=== PATIENT | female | born 1980 | race Caucasian/White ===

== ENCOUNTER 2024-07-23 11:12 | Outpatient (CLI) | payer BC, SELFPAY ==
--- NOTE | ~2024-07-23 | US_ITS ---
Left uterine ULTRASOUND (Doppler ultrasound interrogation techniques used as needed for this exam.) Ordering provider: Comfort Jaquez APRN History: . R59.1 - Generalized enlarged lymph nodes . Comparison: None. FINDINGS: Enlarged lymph nodes are noted measuring 1.2 cm, 0.6 cm, 0.6 cm and 2x 0.5 cm. Reviewed, dictated and finalized at location A.
== END 2024-07-23 11:13 | disposition home or self-care (01) ==
PROVIDERS: PCP Nurse Practitioner Family; Visit Provider Nurse Practitioner Family
DX: R59.1 Generalized enlarged lymph nodes (principal)
CPT/HCPCS: 76882

== ENCOUNTER 2025-01-03 14:02 | Outpatient (CLI) | payer BC, SELFPAY ==
--- NOTE | ~2025-01-03 | MM_ITS ---
EXAMINATION: MM screening trevor BI w taty HISTORY: Screening TECHNIQUE: Craniocaudal and mediolateral oblique 3-D tomosynthesis images were obtained and synthetic 2-D images were generated. CAD analysis was submitted and interpreted. COMPARISON: No prior mammogram is available for comparison at this institution. BREAST PARENCHYMAL COMPOSITION: There are scattered areas of fibroglandular density. FINDINGS: There is no evidence of suspicious mass, calcification, or architectural distortion to suggest malignancy. Asymmetry in the upper right breast, posterior depth, seen in the right MLO projection. Asymmetry in the medial right breast, posterior depth, seen in the right cc projection. Focal as ymmetry in the upper-outer quadrant of the left breast, middle to posterior depth. Asymmetry in the medial right breast, middle depth, seen in the right craniocaudal projection. IMPRESSION: 1. Asymmetry in the upper right breast, posterior depth, seen in the right MLO projection. Asymmetry in the medial right breast, posterior depth, seen in the right craniocaudal projection. Asymmetry in the medial right breast, middle depth, seen in the right craniocaudal projection. The study is incomplete. A diagnostic mammogram and a diagnostic ultrasound are recommended. 2. Focal asymmetry in the upper-outer quadrant of the left breast, middle to posterior depth. The study is incomplete. A diagnostic mammogram and a diagnostic ultrasound are recommended. BI-RADS 0: Incomplete-Need additional imaging evaluation. Reviewed, dictated and finalized at location Q. IMPRESSION: 1. Asymmetry in the upper right breast, posterior depth, seen in the right MLO projection. Asymmetry in the medial right breast, posterior depth, seen in the right craniocaudal projection. Asymmetry in the medial right breast, middle dep th, seen in the right craniocaudal projection. The study is incomplete. A diagn ostic mammogram and a diagnostic ultrasound are recommended. 2. Focal asymmetry in the upper-outer quadrant of the left breast, middle to po sterior depth. The study is incomplete. A diagnostic mammogram and a diagnostic ultrasound are recommended. BI-RADS 0: Incomplete-Need additional imaging evaluation.
== END 2025-01-03 14:03 | disposition home or self-care (01) ==
LOC: MICIMG 14:03
PROVIDERS: PCP Nurse Practitioner Family; Visit Provider Nurse Practitioner Family
DX: Z12.31 Encounter for screening mammogram for malignant neoplasm of breast (principal); R92.8 Other abnormal and inconclusive findings on diagnostic imaging of breast
CPT/HCPCS: 77063; 77067

== ENCOUNTER 2025-01-24 19:51 | Inpatient (IN) | payer BC, SELFPAY ==
--- NOTE | ~2025-01-24 | CT_ITS ---
EXAMINATION: CT abdomen pelvis w con DATE: 01/25/2025 00:11 INDICATION: Right upper quadrant abdominal pain. Abnormal liver function tests. TECHNIQUE: Computed tomography (CT) of the abdomen and pelvis was performed with 100 mL Omnipaque 350 intravenous contrast. Automated exposure control and iterative reconstruction technique were employed. The dose-length product was 601.45 mGy-cm. COMPARISON: None. FINDINGS: The visualized portions of lung bases demonstrate mild atelectasis. No pleural effusion. The heart size is normal. No pericardial effusion. There is mild intrahepatic biliary duct dilatation. The common duct is dilated to 9 mm. The gallbladder is distended. The spleen, pancreas, adrenal glands, and kidneys are normal. There is diverticulosis of the colon without evidence of diverticulitis. The appendix is normal. There are no dilated loops of bowel. There are no pathologically enlarged lymph nodes. There is physiologic fluid in the pelvis. There is mild thoracic and lumbar spondylosis. IMPRESSION: 1. Mild intrahepatic and extrahepatic biliary duct dilatation and gallbladder distention. Consider MRCP. Reviewed, dictated and finalized at location E. TE ATTORNEY IMPRESSION: 1. Mild intrahepatic and extrahepatic biliary duct dilatation and gallbladder d istention. Consider MRCP.
--- NOTE | ~2025-01-24 | MR_ITS ---
EXAMINATION: MR MRCP wo/w con/w 3D wo ind DATE: 01/25/2025 11:26 INDICATION: Assess gallbladder and biliary ducts TECHNIQUE: Magnetic resonance imaging (MRI) of the abdomen was performed without and with 17 mL Multihance intravenous contrast. Sequences included coronal T2- weighted SS-FSE, coronal T2-weighted FS SS-FSE, coronal T2-weighted FS FIESTA, axial T2-weighted FS FIESTA, axial T2-weighted FIESTA, sagittal T2-weighted SS- FSE, axial T1-weighted dual-echo FSPGR, axial T2-weighted SS-FSE, axial T1- weighted LAVA, axial T2-weighted STIR FSE. Thick-slab T2-weighted FRFSE-XL images were obtained for magnetic resonance cholangiopancreatography (MRCP). Rotating maximum intensity projection 3-D reconstructions of the volumetric data were created by the technologist. Postcontrast sequences included a time course of axial T1-weighted LAVA. COMPARISON: CT dated 01/25/2025 FINDINGS: ABDOMEN MRI: Heart size is normal. No pericardial or pleural effusion. There are multiple tiny low signal intensity gallstones the dependent aspect of the mildly gallbladder which measures up to 4.6 cm in maximal diameter. No abnormal gallbladder wall thickening or pericholecystic inflammatory stranding to suggest acute cholecystitis. Side from mild intrahepatic ductal or ductal dilation the liver is normal. Spleen, pancreas, bilateral adrenal glands and right kidney are normal. 1 cm T2 hyperintense nonenhancing cyst at the lower pole the left kidney. Visualized portions of bowels including the appendix are normal. No pathologically enlarged abdominal or upper pelvic lymphadenopathy. Bones are unremarkable with normal marrow signal throughout. ABDOMEN MRCP: Mild central intrahepatic biliary ductal dilation. The common hepatic duct is dilated to 9 mm in maximal diameter tapering to 6 mm at the proximal common bile duct with further tapering distally at the ampulla. A single currently nonobstructing 2 mm low signal intensity gallstone is seen in the dependent aspect of the mid common bile duct. IMPRESSION: 1. Cholelithiasis/choledocholithiasis with 2 mm currently nonobstructing gallstone in the midportion of the common bile duct. The mild intra and extra hepatic biliary ductal dilation is also mild dilation the common bile duct could be related to prior prior or intermittent obstruction. Reviewed, dictated and finalized at location A. GRADER IMPRESSION: 1. Cholelithiasis/choledocholithiasis with 2 mm currently nonobstructing gallst one in the midportion of the common bile duct. The mild intra and extra hepatic biliary ductal dilation is also mild dilation the common bile duct could be re lated to prior prior or intermittent obstruction.
--- NOTE | ~2025-01-24 | XR_ITS ---
XR ERCP Indication: ERCP procedure. TECHNIQUE: Fluoroscopy used during ERCP procedure performed by [Aman Hirsch MD] on 01/25/2025. 104 seconds of fluoroscopy with 5 fluoroscopic images captured. FINDINGS: Correlate with procedure note. IMPRESSION: Fluoroscopy used during ERCP procedure. Reviewed, dictated and finalized at location O. RETE RUBBER
--- NOTE | ~2025-01-24 | US_ITS ---
EXAMINATION: US abdomen limited DATE: 01/25/2025 09:58 INDICATION: Right upper quadrant ultrasound TECHNIQUE: Multiple grayscale and Doppler ultrasound images of the abdomen were obtained. COMPARISON: None FINDINGS: The pancreas is poorly visualized. The liver appears normal size, mildly increased in echotexture. The gallbladder is mildly distended in appearance with echogenic foci in the gallbladder suggestive of gallstones. Negative sonographic Martinez's reported. No gallbladder wall thickening. Common bile duct is 7.6 mm. No free fluid seen. The kidneys are not seen. IMPRESSION: 1. Cholelithiasis with mildly distended gallbladder, and biliary ductal dilatation. Cholecystitis/choledocholithiasis is not excluded. 2. Exam somewhat limited as above. Reviewed, dictated and finalized at location A. ATOR WORKER IMPRESSION: 1. Cholelithiasis with mildly distended gallbladder, and biliary ductal dilatat ion. Cholecystitis/choledocholithiasis is not excluded. 2. Exam somewhat limited as above.
[2025-01-24 19:52] VITALS: BP 130/88; PULSE 89; RESP 18; O2SAT 100
--- NOTE | 2025-01-24 22:29 | PC.NURSE ---
Pt aware she needs to provide urine sample. Pt states she is unable to go at this time.
[2025-01-24 22:31] LABS: Hematocrit 36.9 % (37.0-47.0); Hemoglobin 12.1 g/dL (12.0-15.0); Immature Granulocyte Percent A 0.5 % (0-0.5); Lymphocytes Absolute Auto 0.89 K/mm3 (0.9-3.2); Mean Corpuscular HGB Conc 32.8 g/dl (32-36); Mean Corpuscular Hemoglobin 28.0 pg (26-34); Mean Corpuscular Volume 85.4 fl (80-100); Nucleated Red Blood Cells Absolute Auto 0.000 K/mm3 (0.0-0.012); Nucleated Red Blood Cells Perc 0.0 % (0.0-0.2); Platelet Count Result 222 k/mm3 (150-375); Red Blood Count 4.32 M/mm3 (4.2-5.4); White Blood Count 6.0 K/mm3 (4.5-10.0)
[2025-01-24 22:43] LABS: Alanine Aminotransferase 503 U/L (6-35); Albumin Level 4.5 g/dL (3.5-5.1); Alkaline Phosphatase 104 U/L (38-126); Anion Gap 9 mmol/L (4-12); Aspartate Amino Transferase 476 U/L (14-36); Bilirubin,Total 7.0 mg/dL (0.2-1.3); Blood Urea Nitrogen 10 mg/dL (7-17); Calcium 8.8 mg/dL (8.4-10.2); Carbon Dioxide 24 mmol/L (22-30); Chloride 106 mmol/L (98-107); Estimated CRCL calculation 89 ml/min; Estimated Glomerular Filt Rate > 60; Glucose 108 mg/dL (65-110); Lipase 58 U/L (23-300); Potassium 3.4 mmol/L (3.4-5.0); Sodium 139 mmol/L (137-145); Total Protein 7.4 g/dL (6.3-8.2)
--- NOTE | 2025-01-24 23:41 | ED_ITS ---
HPI - General Adult General Chief complaint: Abdominal Pain Stated complaint: gallbladder attack Time Seen by Provider: 01/24/25 22:57 History of Present Illness HPI narrative: This is a 44-year-old female presenting for right upper quadrant pain. Patient has a history of biliary colic that she experienced maybe once or twice a year. Over the last 3 nights she has been having right upper quadrant pain radiating to her back. It is associated with eating food. she denies any fevers chills nausea vomiting or diarrhea. No chest pain or difficulty breathing. No urinary symptoms. Related Data Home Medications ?Medication ?Instructions ?Recorded ?Confirmed ?Last Taken ?Type No Home Medications 06/20/24 06/20/24 U nknown History Allergies Allergy/AdvReac Type Severity Reaction Status Date / Time No Known Allergies Allergy Mild Verified 01/24/25 19:58 [facility] Past Medical History Medical History (Updated 01/25/25 @ 01:33 by Jules Lyle MD) Encounter to establish care Family History Family History Father Parkinson disease Sibling Hypertension Social History Social History Second hand tobacco smoke exposure: Yes Alcohol intake: current Drinks per week: 3 Substance use: current Substance use type: does not use Do You Feel Safe in your Home?: Yes Lack of Transportation: No Lack of Food: Never True Current Housing: I Have Housing Concerned About Future Housing: No Difficulty Paying Gas/Electric Bills: No Difficulty Paying for Meds: No Currently Unemployed: No Education: Associate Degree Difficulty w/ Childcare or Family Care: No Living arrangements: with family Occupation/Education: occupation Gender identity (if verbalized by the patient): Female Agree to blood products: Yes Exam 2 Narrative: APPEARANCE: No apparent distress. Jaundiced Head: atraumatic. EYES: EOMI, NOSE: Atraumatic NECK: Trachea midline RESPIRATORY: No increased rate of breathing clear to auscultation CARDIOVASCULAR: RRR, no peripheral edema ABDOMINAL: Non-distended, soft nontender no guarding rebound MUSCULOSKELETAl: No obvious deformities NEURO: Alert. Moving 4/4 extremities SKIN:: Warm, dry. Normal color PSYCHIATRIC: Normal affect Course Vital Signs Vital signs: Vital Signs Pulse Rate 89 01/24/25 19:52 Respiratory Rate 18 01/24/25 19:52 Blood Pressure 130/88 01/24/25 19:52 Pulse Oximetry 100 01/24/25 19:52 Oxygen Delivery Room Air 01/24/25 19:52 Pulse Rate 60 01/25/25 01:23 Respiratory Rate 13 01/25/25 01:23 Blood Pressure 132/83 01/25/25 01:23 Pulse Oximetry 100 01/25/25 01:23 Oxygen Delivery Room Air 01/24/25 19:52 Medical Decision Making [facility] Narrative Medical decision making narrative: -Course: 44-year-old female presenting with right upper quadrant pain. On exam she does not have abdominal tenderness but she is jaundiced. Laboratory studies showed bilirubin [address] abdomen pelvis showed dilated gallbladder intra and extrahepatic biliary dilation. No definitive stones identified. Suspicious for cholecystitis versus choledocholithiasis. Patient's presentation more consistent with choledocholithiasis although further evaluation is needed. Case was discussed with Dr. Thapa. He has requested a right upper quadrant ultrasound and MRCP. He requested no antibiotics. Patient given fluids pain control. Patient will be admitted the hospital. -DDX includes but is not limited to: acute cholecystitis, choledocholithiasis, cholangitis Vital Signs Vital Signs: Vital Signs Pulse Rate 89 01/24/25 19:52 Respiratory Rate 18 01/24/25 19:52 Blood Pressure 130/88 01/24/25 19:52 Pulse Oximetry 100 01/24/25 19:52 Oxygen Delivery Room Air 01/24/25 19:52 Pulse Rate 60 01/25/25 01:23 Respiratory Rate 13 01/25/25 01:23 Blood Pressure 132/83 01/25/25 01:23 Pulse Oximetry 100 01/25/25 01:23 Oxygen Delivery Room Air 01/24/25 19:52 Lab Data 01/24/25 22:24 01/24/25 22:24 Labs: Lab Results 01/24/25 01/24/25 01/25/25 Range/Units 22:24 23:59 00:00 WBC 6.0 (4.5-10.0) K/mm3 RBC 4.32 (4.2-5.4) M/mm3 Hgb 12.1 (12.0-15.0) g/dL Hct 36.9 L (37.0-47.0) % MCV 85.4 (80-100) fl MCH 28.0 (26-34) pg MCHC 32.8 (32-36) g/dl RDW 13.6 (11.5-14.5) % Plt Count 222 (150-375) k/mm3 MPV 10.6 H (7.4-10.4) fl Immature Gran % (Auto) 0.5 (0-0.5) % Neut % (Auto) 74.4 H (45.5-73.1) % Lymph % (Auto) 14.8 L (18.3-44.2) % Wheeler % (Auto) 7.5 (2.6-8.5) % Eos % (Auto) 2.5 (0-4.4) % Baso % (Auto) 0.3 (0.2-1.2) % Lymph # (Auto) 0.89 L (0.9-3.2) K/mm3 Wheeler # (Auto) 0.5 (0.1-0.6) K/mm3 Eos # (Auto) 0.2 (0-0.3) K/mm3 Baso # (Auto) 0.0 (0.0-0.1) K/mm3 Abs Immat Gran (auto) 0.03 (0.00-0.031) K/mm3 Absolute Neuts (auto) 4.5 (1.3-6.7) K/mm3 Absolute Nucleated RBC 0.000 (0.0-0.012) K/mm3 Nucleated RBC % 0.0 (0.0-0.2) % Sodium 139 (137-145) mmol/L Potassium 3.4 (3.4-5.0) mmol/L Chloride 106 (98-107) mmol/L Carbon Dioxide 24 (22-30) mmol/L Anion Gap 9 (4-12) mmol/L BUN 10 (7-17) mg/dL Creatinine 0.74 (0.7-1.0) mg/dL Estim Creat Clear Calc 89 ml/min Estimated GFR > 60 (59 - ) Glucose 108 (65-110) mg/dL Calcium 8.8 (8.4-10.2) mg/dL Total Bilirubin 7.0 H (0.2-1.3) mg/dL AST 476 H (14-36) U/L ALT 503 H (6-35) U/L Alkaline Phosphatase 104 (38-126) U/L Total Protein 7.4 (6.3-8.2) g/dL Albumin 4.5 (3.5-5.1) g/dL Lipase 58 (23-300) U/L Urine Color Dark yellow (Yellow) Urine Appearance Clear (Clear) Urine pH 5.5 (5.0-9.0) Ur Specific [place] 1.019 (1.001-1.035) Urine Protein Negative (Negative) mg/dL Urine Glucose (UA) Negative (Negative) mg/dL Urine Ketones Trace H (Negative) mg/dL Ur Blood (Man) Negative (Negative) Urine Nitrate Positive H (Negative) Urine Bilirubin 3+ H (Negative) Urine Urobilinogen 2.0 H (<2.0) mg/dL Add Ur Microanalysis Reviewed Leukocyte Esterase Rfl 1+ H (Negative) MARISELA/UL Urine RBC 0-2 (0-2) /hpf Urine WBC 0-5 (0-3) /hpf Ur Squamous Epith Cells Occasional (Few) /hpf Urine Bacteria 1+ H /hpf Urine Casts 0-2 POC Urine HCG, Qual Negative (Negative) Discharge Plan Discharge Clinical Impression: Elevated liver enzymes Patient Disposition: Still a Patient Condition: Stable Instructions: Antibiotic Form Patient Language: Azeri Prescriptions: No Action No Home Medications Follow-up/Referrals: Comfort Jaquez APRN [Primary Care Provider, Internal Medicine]
[2025-01-25] VITALS (15 sets, daily range): BP systolic 95–136; BP diastolic 51–88; PULSE 60–103; RESP 13–23; TEMP 36.1–37.1; O2SAT 97–100
[2025-01-25 00:17] LABS: Add Urine Microscopic? YES; Appearance Urine Clear (Clear); Glucose Urine UA Negative (Negative); Leukocyte Esterase Ur 1+ LEU/UL (Negative); Need Manual Microscopic Reviewed; Nitrate Urine Positive (Negative); Non Pathogenic Casts 0-2; Specific Grav Ur 1.019 (1.001-1.035)
[2025-01-25 00:30] LABS: BEDSIDEPREGUCG Negative (Negative)
[2025-01-25] MEDS: HYDROmorphone HCL INJ (*CRX) 1 MG/ML SYR 0.5 MG IV PUSH (01:58)
[2025-01-25] MEDS: LACTATED RINGERS 1,000 ML 150 ML IV CONT ×2 (01:58→16:35)
--- NOTE | 2025-01-25 02:50 | ADMGEN ---
This patient, Vonda Rosario, was admitted to Medical Room 348-01. Patient/family oriented to hospital policies and general routines including ID bracelet, bed and alarms, visiting hours, pain management, procedures, bathroom and other care routines, personal items, smoking policy, room service/diet, and visiting hours. Information on how to activate the Rapid Response Team has been discussed. Patient/Family are encouraged to report perceived risks to care and to ask questions if they do not understand what they are told or what they should do.
[2025-01-25] MEDS: IBUPROFEN 400 MG TABLET PO (05:53)
[2025-01-25 05:55] LABS: Hematocrit 36.6 % (37.0-47.0); Hemoglobin 11.7 g/dL (12.0-15.0); Immature Granulocyte Percent A 0.5 % (0-0.5); Lymphocytes Absolute Auto 0.79 K/mm3 (0.9-3.2); Mean Corpuscular HGB Conc 32.0 g/dl (32-36); Mean Corpuscular Hemoglobin 27.8 pg (26-34); Mean Corpuscular Volume 86.9 fl (80-100); Nucleated Red Blood Cells Absolute Auto 0.000 K/mm3 (0.0-0.012); Nucleated Red Blood Cells Perc 0.0 % (0.0-0.2); Platelet Count Result 200 k/mm3 (150-375); Red Blood Count 4.21 M/mm3 (4.2-5.4); White Blood Count 6.3 K/mm3 (4.5-10.0)
[2025-01-25 06:21] LABS: Alanine Aminotransferase 492 U/L (6-35); Albumin Level 4.2 g/dL (3.5-5.1); Alkaline Phosphatase 106 U/L (38-126); Anion Gap 7 mmol/L (4-12); Aspartate Amino Transferase 475 U/L (14-36); Bilirubin,Total 6.1 mg/dL (0.2-1.3); Blood Urea Nitrogen 8 mg/dL (7-17); Calcium 8.6 mg/dL (8.4-10.2); Carbon Dioxide 23 mmol/L (22-30); Chloride 107 mmol/L (98-107); Estimated CRCL calculation 94 ml/min; Estimated Glomerular Filt Rate > 60; Glucose 101 mg/dL (65-110); Magnesium 2.2 mg/dL (1.6-2.3); Potassium 3.8 mmol/L (3.4-5.0); Sodium 137 mmol/L (137-145); Total Protein 6.8 g/dL (6.3-8.2)
[2025-01-25 06:27] LABS: INR 1.0; Prothrombin Time 13.8 Seconds (11.1-14.7)
--- NOTE | 2025-01-25 08:11 | PM.IMHP ---
H&P: HPI History of Present Illness Date/Time: 01/25/25 08:11 Chief Complaint: Abdominal Pain Narrative: Vonda Rosario is a 44 year old female with a past medical history of Gallbladder disease who presents to the hospital with RUQ abdominal pain for the past 3 days. She states this pain is intermittent and radiates to her back. States that after eating food it tends to get worse and a heating pad tends to alleviate the symptoms. Denies any chest pain, shortness of breath, n/v/d, fevers or chills. Denies any urinary/bowel changes. She states that she has a long history of ?gallbladder issues and will develop symptoms similar to which she is presenting with today but that it usually subsides. She also states that she noticed her skin turning yellow, which prompted her to come to the emergency department. At time of exam, patient denied any abdominal pain or nausea. No family history of colorectal cancer or IBD. Denies any recent travel, illnesses or illicit drug use. ED workup: 130/88, 100% on room air, 18 respiratory rate, 89 pulse rate WBC 6.0, H&H normal, PLT 222, Na 139, K 3.4, BUN 10, creatinine 0.74 total bilirubin 7, AST 476, ALT 503, alkaline phosphatase 104, lipase 58 UA: 3+ bilirubin, 1+ bacteria, 1+ leukocyte esterase otherwise unremarkable Abdomen/pelvis CT: Mild intrahepatic and extrahepatic biliary duct dilation and gallbladder distension, consider MRCP Abdomen ultrasound: Cholelithiasis with mildly distended gallbladder, and biliary duct dilation, cholecystitis/choledocholithiasis not excluded Review of Systems Review of Systems: All systems reviewed & are unremarkable except as noted in HPI and below [facility], [facility] Past Medical History Medical History (Updated 01/25/25 @ 12:49 by Kiya Flowers APRN) Encounter to establish care Family History Family History (Updated 01/25/25 @ 02:57 by Desiree Petty RN) Father Parkinson disease Sibling Hypertension Mother Alzheimer dementia Social History Social History Smoking status: Never smoker Second hand tobacco smoke exposure: Yes Alcohol intake: current Drinks per week: 1 Substance use: current Substance use type: marijuana Other substance usage details: 1xper mo Do You Feel Safe in your Home?: Yes Lack of Transportation: No Lack of Food: Never True Current Housing: I Have Housing Concerned About Future Housing: No Difficulty Paying Gas/Electric Bills: No Difficulty Paying for Meds: No Currently Unemployed: No Education: Associate Degree Difficulty w/ Childcare or Family Care: No Living arrangements: with family Occupation/Education: occupation Gender identity (if verbalized by the patient): Female Spiritual care concerns: No Agree to blood products: Yes Meds Home Medications and Allergies Home Medications ?Medication ?Instructions ?Recorded ?Confirmed ?Type No Home Medications 06/20/24 01/25/25 History Allergies Allergy/AdvReac Type Severity Reaction Status Date / Time No Known Allergies Allergy Mild Verified 01/25/25 02:54 Vital Signs Vital Signs - 24 hr 01/24/25 19:52 01/25/25 00:01 01/25/25 01:23 Temperature Pulse Rate 89 67 60 Respiratory Rate 18 18 13 Blood Pressure 130/88 112/74 132/83 Pulse Oximetry 100 100 100 Oxygen Delivery Room Air 01/25/25 01:45 01/25/25 03:03 01/25/25 03:59 Temperature 96.9 F L Pulse Rate 70 69 Respiratory Rate 19 18 Blood Pressure 131/88 102/56 L Pulse Oximetry 100 98 Oxygen Delivery Room Air 01/25/25 06:00 Temperature 97.5 F L Pulse Rate 81 Respiratory Rate 16 Blood Pressure 95/51 L Pulse Oximetry 98 Oxygen Delivery Exam Narrative: Gen - well appearing female in no acute respiratory distress who is nontoxic-appearing lying semi recumbent in bed HEENT - normocephalic. Atraumatic. Pupils equal round and reactive. Extraocular motions intact. Sclera clear and anicteric. Nares patent. Moist mucous membranes. No facial asymmetry. Neck - neck was supple. No dominant adenopathy, thyromegaly or masses. 2+ carotid upstrokes without bruits. Chest - lungs are clear to auscultation bilaterally. No wheezes or crackles. CV - heart was regular rate and rhythm. S1-S2. No murmurs gallops or rubs. Abd - abdomen was soft. Nontender. Nondistended. Positive bowel sounds. No organomegaly or masses. Ext - no clubbing, cyanosis or edema. 2+ DP pulses bilaterally. Neuro - patient is alert and oriented x4. Strength is 5/5 in both upper and lower extremities. Cranial nerves 2-12 are intact. Speech is clear. Psych - normal mood and affect. Patient is pleasant and cooperative. Skin -jaundiced, warm and dry. No rashes noted. H&P: Results Labs Labs: Short CBC 01/24/25 01/25/25 Range/Units 22:24 05:34 WBC 6.0 6.3 (4.5-10.0) K/mm3 Hgb 12.1 11.7 L (12.0-15.0) g/dL Hct 36.9 L 36.6 L (37.0-47.0) % Plt Count 222 200 (150-375) k/mm3 BMP 01/24/25 01/25/25 22:24 05:34 Sodium 139 137 Potassium 3.4 3.8 Chloride 106 107 Carbon Dioxide 24 23 BUN 10 8 Creatinine 0.74 0.69 L Glucose 108 101 Calcium 8.8 8.6 Liver Function 01/24/25 01/25/25 Range/Units 22:24 05:34 Total Bilirubin 7.0 H 6.1 H (0.2-1.3) mg/dL AST 476 H 475 H (14-36) U/L ALT 503 H 492 H (6-35) U/L Alkaline Phosphatase 104 106 (38-126) U/L Albumin 4.5 4.2 (3.5-5.1) g/dL Urine 01/24/25 Range/Units 23:59 Urine Color Dark yellow (Yellow) Urine Appearance Clear (Clear) Urine pH 5.5 (5.0-9.0) Ur Specific [place] 1.019 (1.001-1.035) Urine Protein Negative (Negative) mg/dL Urine Glucose (UA) Negative (Negative) mg/dL Assessment and Plan Assessment and plan (1) Abnormal finding of biliary tract: Code(s): R19.8 - Other specified symptoms and signs involving the digestive system and abdomen Status: Acute Assessment and Plan: Abdomen/pelvis CT: Mild intrahepatic and extrahepatic biliary duct dilation and gallbladder distension, consider MRCP Abdomen ultrasound: Cholelithiasis with mildly distended gallbladder, and biliary duct dilation, cholecystitis/choledocholithiasis not excluded AST/ALT: 475/492, normal alk phos, total bili 6.1 P.r.n. pain control Gentle IV fluid resuscitation Diet: NPO MRCP: Cholelithiasis/choledocholithiasis with 2 mm currently nonobstructing gallstone in the midportion of the common bile duct. The mild intra and extra hepatic biliary ductal dilation is also mild dilation the common bile duct could be related to prior prior or intermittent obstruction. Monitor vital signs, I and O's, check stool output Monitor serum electrolytes and CBC GI consulted -appreciate further recommendations Trend LFTs over the weekend - if no improvement then ERCP Tuesday Recommend outpt surgery referral for Cholecystectomy - pt is asymptomatic and gallbladder does not appear to be acutely infected, CBD non-obstructed (2) Choledocholithiasis: Code(s): K80.50 - Calculus of bile duct without cholangitis or cholecystitis without obstruction Status: Acute Assessment and Plan: See problem 1 (3) Elevated liver enzymes: Code(s): R74.8 - Abnormal levels of other serum enzymes Status: Acute Assessment and Plan: See problem 1 Quality VTE Prophylaxis VTE prophylaxis: mechanical ordered
--- NOTE | 2025-01-25 09:33 | WPDGICN ---
Assessment and Plan Assessment and plan (1) Elevated liver enzymes: Code(s): R74.8 - Abnormal levels of other serum enzymes Status: Acute (2) Abnormal finding of biliary tract: Code(s): R19.8 - Other specified symptoms and signs involving the digestive system and abdomen Status: Acute (3) Choledocholithiasis: Code(s): K80.50 - Calculus of bile duct without cholangitis or cholecystitis without obstruction Status: Acute Plan 1. Elevated LFT's/abnormal imaging biliary/gallbladder distention/choledocholithiasis: LFT's today show total bilirubin 6.1, AST 475, ALT 492, alkaline phosphatase 106, albumin 4.2, lipase 58, albumin 4.[address] revealed mild intrahepatic and extrahepatic biliary duct dilatation and gallbladder distention (CBD measuring 9 mm). Abdominal ultrasound showed cholelithiasis with mildly distended gallbladder, and biliary ductal dilatation. Cholecystitis/choledocholithiasis is not exclude with CBD measuring 7.6 mm. MRCP today: Cholelithiasis/choledocholithiasis with 2 mm currently nonobstructing gallstone in the midportion of the common bile duct. The mild intra and extra hepatic biliary ductal dilation is also mild dilation the common bile duct could be related to prior prior or intermittent obstruction. liver workup ordered to rule out other possible causes of abnormal elevated bilirubin and liver transaminase but normal Alk Phos Trend LFT's over the weekend and if no improvement will plan for ERCP on Tuesday patient will need to be referred to surgery outpatient for cholecystectomy 2. Colon cancer screening: Patient is 44 years old and has never had a colonoscopy. Familt Hx negative for CRC or IBD. Patient to follow up outpatient in the office if she would like to proceed with screening colonoscopy. Thank you very much for allowing me to share in the care of this very nice patient. This report may have been done utilizing a voice recognition system. Attempts have been made to correct errors. However, there may be uncorrected grammatical, spelling, and recognition errors present. GI Consult Note Consult date/time: 01/25/25 09:33 Reason for consult: elevated LFT's and abnormal imaging biliary HPI: Vonda Rosario is a 44 year old female with no significant past medical surgical history. She presented to the emergency room today with complaints of right upper quadrant pain x3 days. GI has been consulted abnormal LFTs and abnormal imaging biliary tract. Patient states that prior to admission she was having right upper quadrant pain that would typically only occur at night but would resolve before she woke in the morning she states that she had never had pain throughout the day. She denies nausea, vomiting, bloating, odynophagia, dysphagia, reflux, regurgitation, early satiety, appetite or weight loss. Prior to admission she was having regular daily bowel movements that were formed and non Urgent. Denies diarrhea, constipation, hematochezia, or melena. Patient uses ibuprofen 400 mg 5 times a week. Family history negative for CRC or IBD. She has a rare social drinker denies tobacco use and occasionally uses marijuana. ENDOSCOPY HISTORY: EGD: Patient has never had an EGD COLONOSCOPY: Patient has never had a colonoscopy LABS AND STOOL STUDIES: Labs 01/25/2025: Sodium 137, potassium 3.8, BUN 8, creatinine 0.69, GFR >60, calcium 8.6 WBC 6.3, Hgb 12, Hct 37, MCV 87, platelets 200, INR 1.0 Total bilirubin 6.1, AST 475, ALT 492, Alkaline Phos 106, albumin 4.2, lipase 58 IMAGING: CT abd/pelvis w/contrast 01/25/2025: FINDINGS: The visualized portions of lung bases demonstrate mild atelectasis. No pleural effusion. The heart size is normal. No pericardial effusion. There is mild intrahepatic biliary duct dilatation. The common duct is dilated to 9 mm. The gallbladder is distended. The spleen, pancreas, adrenal glands, and kidneys are normal. There is diverticulosis of the colon without evidence of diverticulitis. The appendix is normal. There are no dilated loops of bowel. There are no pathologically enlarged lymph nodes. There is physiologic fluid in the pelvis. There is mild thoracic and lumbar spondylosis. IMPRESSION: 1. Mild intrahepatic and extrahepatic biliary duct dilatation and gallbladder distention. Consider MRCP. Review of Systems Constitutional: Constitutional: Reports as per HPI ENT: Reports as per HPI Cardiovascular: Cardiovascular: Reports as per HPI, Denies chest pain and Denies dyspnea Respiratory: Respiratory: Denies cough and Denies dyspnea Gastrointestinal: Gastrointestinal: Reports as per HPI Musculoskeletal: Musculoskeletal: Reports as per HPI Integumentary/Breasts: Skin/Breast: Reports as per HPI Psychiatric: Psychiatric: Reports as per HPI Endocrine: Endocrine: Reports no additional endocrine complaints Hematologic/Lymphatic: Hematologic/Lymphatic: Reports no additional hematologic/lymphatic complaints [facility] Past Medical History Medical History (Updated 01/25/25 @ 12:49 by Kiya Flowers APRN) Encounter to establish care Family History Family History (Updated 01/25/25 @ 02:57 by Desiree Petty RN) Father Parkinson disease Sibling Hypertension Mother Alzheimer dementia Social History Social History Smoking status: Never smoker Second hand tobacco smoke exposure: Yes Alcohol intake: current Drinks per week: 1 Substance use: current Substance use type: marijuana Other substance usage details: 1xper mo Do You Feel Safe in your Home?: Yes Lack of Transportation: No Lack of Food: Never True Current Housing: I Have Housing Concerned About Future Housing: No Difficulty Paying Gas/Electric Bills: No Difficulty Paying for Meds: No Currently Unemployed: No Education: Associate Degree Difficulty w/ Childcare or Family Care: No Living arrangements: with family Occupation/Education: occupation Gender identity (if verbalized by the patient): Female Spiritual care concerns: No Agree to blood products: Yes Meds Home Medications and Allergies Home Medications ?Medication ?Instructions ?Recorded ?Confirmed ?Type No Home Medications 06/20/24 01/25/25 History Allergies Allergy/AdvReac Type Severity Reaction Status Date / Time No Known Allergies Allergy Mild Verified 01/25/25 02:54 Vital Signs Vital Signs - 24 hr 01/24/25 19:52 01/25/25 00:01 01/25/25 01:23 Temperature Pulse Rate 89 67 60 Respiratory Rate 18 18 13 Blood Pressure 130/88 112/74 132/83 Pulse Oximetry 100 100 100 Oxygen Delivery Room Air 01/25/25 01:45 01/25/25 03:03 01/25/25 03:59 Temperature 96.9 F L Pulse Rate 70 69 Respiratory Rate 19 18 Blood Pressure 131/88 102/56 L Pulse Oximetry 100 98 Oxygen Delivery Room Air 01/25/25 06:00 01/25/25 08:00 Temperature 97.5 F L 98.8 F Pulse Rate 81 72 Respiratory Rate 16 16 Blood Pressure 95/51 L 113/69 Pulse Oximetry 98 99 Oxygen Delivery Exam Const: General: cooperative, healthy appearing, comfortable, no acute distress and well developed Orientation/consciousness: oriented to person, oriented to place, oriented to time and patient oriented x3 HENMT: Head: normal to inspection, normocephalic and atraumatic Mouth: Yes Normal oral and palatal mucosa present and Yes moist mucous membranes Eyes: General: appearance normal, both eyes and all related structures Conjunctivae: conjunctivae normal Sclera: sclerae normal Pupils: Equal, round and reactive pupils present Neck: Neck: normal visual inspection Chest: Chest palpation & inspection: normal inspection of the chest Resp: Effort & Inspection: normal respiratory effort and able to speak in complete sentences Auscultation: clear to auscultation bilaterally Cardio: Jugular venous distension: no JVD Rate: regular rate Rhythm: regular rhythm Heart sounds: S1 normal heart sound present and S2 normal heart sound present GI: Inspection: normal to inspection GI Palp: Yes Soft to palpation and Yes No hepatosplenomegaly present Auscultation: normal bowel sounds Rectal Exam: deferred Skin: General skin exam: normal color and no rashes or lesions noted Neuro: General: oriented to person, oriented to place, oriented to time and patient oriented x3 Cranial nerves: Yes Equal, round and reactive pupils present Speech: normal speech Extrem: General: normal to inspection and no clubbing, cyanosis or edema Psych: Appearance: grossly normal and well kempt Affect: normal affect Results Labs 01/25/25 05:34 01/25/25 05:34 Labs: Short CBC 01/24/25 01/25/25 Range/Units 22:24 05:34 WBC 6.0 6.3 (4.5-10.0) K/mm3 Hgb 12.1 11.7 L (12.0-15.0) g/dL Hct 36.9 L 36.6 L (37.0-47.0) % Plt Count 222 200 (150-375) k/mm3 BMP 01/24/25 01/25/25 22:24 05:34 Sodium 139 137 Potassium 3.4 3.8 Chloride 106 107 Carbon Dioxide 24 23 BUN 10 8 Creatinine 0.74 0.69 L Glucose 108 101 Calcium 8.8 8.6 Liver Function 01/24/25 01/25/25 Range/Units 22:24 05:34 Total Bilirubin 7.0 H 6.1 H (0.2-1.3) mg/dL AST 476 H 475 H (14-36) U/L ALT 503 H 492 H (6-35) U/L Alkaline Phosphatase 104 106 (38-126) U/L Albumin 4.5 4.2 (3.5-5.1) g/dL Urine 01/24/25 Range/Units 23:59 Urine Color Dark yellow (Yellow) Urine Appearance Clear (Clear) Urine pH 5.5 (5.0-9.0) Ur Specific [place] 1.019 (1.001-1.035) Urine Protein Negative (Negative) mg/dL Urine Glucose (UA) Negative (Negative) mg/dL
[2025-01-25 10:28] LABS: Iron 87 ug/dL (37-170)
[2025-01-25 10:37] LABS: Percent Iron Saturation 34 % (20-50)
[2025-01-25 11:01] LABS: Hepatitis B Surface Antigen Negative (Negative)
[2025-01-25 11:03] LABS: Ferritin 295.00 ng/mL (6.24-137)
[2025-01-25 11:07] LABS: HAV RESULT Negative (Negative); Hepatitis B Core IgM Result Negative (Negative)
[2025-01-25] MEDS: IBUPROFEN 600 MG TABLET PO ×2 (11:59→17:52)
--- NOTE | 2025-01-25 15:44 | P.PNAN_ITS ---
Anes - Initial Pre Proc Eval Procedure: Operation Date: 01/25/25 15:30 Proposed Procedures p Endoscopic Retro Cholangiopancreatogram - Aman Hirsch MD Date/Time: 01/25/25 15:44 Surgeon: Caio Perez MD Pre Op Diagnosis: Elevated liver enzymes Patient Data Age: 44 Gender: F Height: 1.65 m Weight: 83.2 kg Last Vital Signs Temp 36.8 C 01/25/25 15:17 Pulse 66 01/25/25 15:17 Resp 19 01/25/25 15:17 BP 123/66 01/25/25 15:17 Pulse Ox 100 01/25/25 15:17 O2 Del Method Room Air 01/25/25 15:17 Allergies Allergy/AdvReac Type Severity Reaction Status Date / Time No Known Allergies Allergy Mild Verified 01/25/25 15:17 Home Medications ?Medication ?Instructions ?Recorded ?Confirmed ?Type No Home Medications 06/20/24 01/25/25 H istory Laboratory Tests 01/24/25 01/24/25 01/25/25 22:24 23:59 00:00 WBC 6.0 K/mm3 (4.5-10.0) RBC 4.32 M/mm3 (4.2-5.4) Hgb 12.1 g/dL (12.0-15.0) Hct 36.9 L % (37.0-47.0) MCV 85.4 fl (80-100) MCH 28.0 pg (26-34) MCHC 32.8 g/dl (32-36) RDW 13.6 % (11.5-14.5) Plt Count 222 k/mm3 (150-375) MPV 10.6 H fl (7.4-10.4) Immature Gran % (Auto) 0.5 % (0-0.5) Neut % (Auto) 74.4 H % (45.5-73.1) Lymph % (Auto) 14.8 L % (18.3-44.2) [place] % (Auto) 7.5 % (2.6-8.5) Eos % (Auto) 2.5 % (0-4.4) Baso % (Auto) 0.3 % (0.2-1.2) Lymph # (Auto) 0.89 L K/mm3 (0.9-3.2) [place] # (Auto) 0.5 K/mm3 (0.1-0.6) Eos # (Auto) 0.2 K/mm3 (0-0.3) Baso # (Auto) 0.0 K/mm3 (0.0-0.1) Abs Immat Gran (auto) 0.03 K/mm3 (0.00-0.031) Absolute Neuts (auto) 4.5 K/mm3 (1.3-6.7) Absolute Nucleated RBC 0.000 K/mm3 (0.0-0.012) Nucleated RBC % 0.0 % (0.0-0.2) PT INR Sodium 139 mmol/L (137-145) Potassium 3.4 mmol/L (3.4-5.0) Chloride 106 mmol/L (98-107) Carbon Dioxide 24 mmol/L (22-30) Anion Gap 9 mmol/L (4-12) BUN 10 mg/dL (7-17) Creatinine 0.74 mg/dL (0.7-1.0) Estim Creat Clear Calc 89 ml/min Estimated GFR > 60 (59 - ) Glucose 108 mg/dL (65-110) Calcium 8.8 mg/dL (8.4-10.2) Magnesium Iron TIBC % Saturation Ferritin Total Bilirubin 7.0 H mg/dL (0.2-1.3) Indirect Bilirubin GGT AST 476 H U/L (14-36) ALT 503 H U/L (6-35) Alkaline Phosphatase 104 U/L (38-126) Total Protein 7.4 g/dL (6.3-8.2) Albumin 4.5 g/dL (3.5-5.1) Ceruloplasmin Lipase 58 U/L (23-300) Urine Color Dark yellow (Yellow) Urine Appearance Clear (Clear) Urine pH 5.5 (5.0-9.0) Ur Specific [place] 1.019 (1.001-1.035) Urine Protein Negative mg/dL (Negative) Urine Glucose (UA) Negative mg/dL (Negative) Urine Ketones Trace H mg/dL (Negative) Ur Blood (Man) Negative (Negative) Urine Nitrate Positive H (Negative) Urine Bilirubin 3+ H (Negative) Urine Urobilinogen 2.0 H mg/dL (<2.0) Add Ur Microanalysis Reviewed Leukocyte Esterase Rfl 1+ H MARISELA/UL (Negative) Urine RBC 0-2 /hpf (0-2) Urine WBC 0-5 /hpf (0-3) Ur Squamous Epith Cells Occasional /hpf (Few) Urine Bacteria 1+ H /hpf Urine Casts 0-2 POC Urine HCG, Qual Negative (Negative) JAXON Screen JAXON Titer JAXON Titer 2 JAXON Titer 3 JAXON Pattern JAXON Pattern 2 JAXON Pattern 3 JAXON Comment Mitochondria M2 Ab Actin IgG Antibody Hepatitis A IgM Ab Hep Bs Antigen Hep B Core IgM Ab Hepatitis C Ab Screen 01/25/25 01/25/25 01/25/25 05:34 09:57 10:00 WBC 6.3 K/mm3 (4.5-10.0) RBC 4.21 M/mm3 (4.2-5.4) Hgb 11.7 L g/dL (12.0-15.0) Hct 36.6 L % (37.0-47.0) MCV 86.9 fl (80-100) MCH 27.8 pg (26-34) MCHC 32.0 g/dl (32-36) RDW 13.6 % (11.5-14.5) Plt Count 200 k/mm3 (150-375) MPV 10.9 H fl (7.4-10.4) Immature Gran % (Auto) 0.5 % (0-0.5) Neut % (Auto) 77.2 H % (45.5-73.1) Lymph % (Auto) 12.6 L % (18.3-44.2) [place] % (Auto) 8.1 % (2.6-8.5) Eos % (Auto) 1.1 % (0-4.4) Baso % (Auto) 0.5 % (0.2-1.2) Lymph # (Auto) 0.79 L K/mm3 (0.9-3.2) [place] # (Auto) 0.5 K/mm3 (0.1-0.6) Eos # (Auto) 0.1 K/mm3 (0-0.3) Baso # (Auto) 0.0 K/mm3 (0.0-0.1) Abs Immat Gran (auto) 0.03 K/mm3 (0.00-0.031) Absolute Neuts (auto) 4.8 K/mm3 (1.3-6.7) Absolute Nucleated RBC 0.000 K/mm3 (0.0-0.012) Nucleated RBC % 0.0 % (0.0-0.2) PT 13.8 Seconds (11.1-14.7) INR 1.0 Sodium 137 mmol/L (137-145) Potassium 3.8 mmol/L (3.4-5.0) Chloride 107 mmol/L (98-107) Carbon Dioxide 23 mmol/L (22-30) Anion Gap 7 mmol/L (4-12) BUN 8 mg/dL (7-17) Creatinine 0.69 L mg/dL (0.7-1.0) Estim Creat Clear Calc 94 ml/min Estimated GFR > 60 (59 - ) Glucose 101 mg/dL (65-110) Calcium 8.6 mg/dL (8.4-10.2) Magnesium 2.2 mg/dL (1.6-2.3) Iron 87 ug/dL (37-170) TIBC 253 L ug/dL (261-462) % Saturation 34 % (20-50) Ferritin 295.00 H ng/mL (6.24-137) Total Bilirubin 6.1 H mg/dL (0.2-1.3) Indirect Bilirubin 1.8 H mg/dL (0-1.1) GGT Pending AST 475 H U/L (14-36) ALT 492 H U/L (6-35) Alkaline Phosphatase 106 U/L (38-126) Total Protein 6.8 g/dL (6.3-8.2) Albumin 4.2 g/dL (3.5-5.1) Ceruloplasmin Pending Lipase Urine Color Urine Appearance Urine pH Ur Specific [place] Urine Protein Urine Glucose (UA) Urine Ketones Ur Blood (Man) Urine Nitrate Urine Bilirubin Urine Urobilinogen Add Ur Microanalysis Leukocyte Esterase Rfl Urine RBC Urine WBC Ur Squamous Epith Cells Urine Bacteria Urine Casts POC Urine HCG, Qual JAXON Screen Pending Cancelled JAXON Titer Cancelled JAXON Titer 2 Cancelled JAXON Titer 3 Cancelled JAXON Pattern Cancelled JAXON Pattern 2 Cancelled JAXON Pattern 3 Cancelled JAXON Comment Cancelled Mitochondria M2 Ab Pending Actin IgG Antibody Pending Hepatitis A IgM Ab Negative (Negative) Hep Bs Antigen Negative (Negative) Hep B Core IgM Ab Negative (Negative) Hepatitis C Ab Screen Negative (Negative) Patient hx anesthesia problems: none Family hx anesthesia problems: none Results Review: All pre-operative results and documents have been reviewed as part of the pre- operative evaluation. [facility] Past Medical History Medical History Encounter to establish care Family History Family History Father Parkinson disease Sibling Hypertension Mother Alzheimer dementia Social History Social History Smoking status: Never smoker Second hand tobacco smoke exposure: Yes Alcohol intake: current Drinks per week: 1 Substance use: current Substance use type: marijuana Other substance usage details: 1xper mo Do You Feel Safe in your Home?: Yes Lack of Transportation: No Lack of Food: Never True Current Housing: I Have Housing Concerned About Future Housing: No Difficulty Paying Gas/Electric Bills: No Difficulty Paying for Meds: No Currently Unemployed: No Education: Associate Degree Difficulty w/ Childcare or Family Care: No Living arrangements: with family Occupation/Education: occupation Gender identity (if verbalized by the patient): Female Spiritual care concerns: No Agree to blood products: Yes Anes - Eval Final PreProcedure Day of Procedure 01/25/25 15:44 Patient weight: obese Heart: regular rate and rhythm Lungs: clear to auscultation Airway: Mallampati scale class II Neurological: alert and oriented Last oral intake: >/= 8 hours ASA classification: II Emergent: no Anesthetic plan: proceed Anesthesia type and monitoring: general ETT and standard monitoring Results Review: All pre-operative results and documents have been reviewed as part of the pre- operative evaluation. Informed Consent: The patient's anesthetic plan and its attendant risks and benefits were discussed with the patient/family/POA. Questions were solicited and answers provided to the satisfaction of the patient/family/POA.
[2025-01-25] MEDS: INDOMETHACIN 50 MG SUPP.RECT RECTAL (15:58)
[2025-01-26] VITALS: BP 104/64; PULSE 92; RESP 16; TEMP 36.6; O2SAT 97
[2025-01-26] MEDS: IBUPROFEN 600 MG TABLET PO ×3 (01:26→18:26)
[2025-01-26] MEDS: HYDROmorphone HCL INJ (*CRX) 1 MG/ML SYR 0.5 MG IV PUSH ×4 (03:05→16:49)
[2025-01-26 05:57] LABS: Hematocrit 36.5 % (37.0-47.0); Hemoglobin 12.0 g/dL (12.0-15.0); Immature Granulocyte Percent A 0.3 % (0-0.5); Lymphocytes Absolute Auto 0.75 K/mm3 (0.9-3.2); Mean Corpuscular HGB Conc 32.9 g/dl (32-36); Mean Corpuscular Hemoglobin 28.6 pg (26-34); Mean Corpuscular Volume 86.9 fl (80-100); Nucleated Red Blood Cells Absolute Auto 0.000 K/mm3 (0.0-0.012); Nucleated Red Blood Cells Perc 0.0 % (0.0-0.2); Platelet Count Result 211 k/mm3 (150-375); Red Blood Count 4.20 M/mm3 (4.2-5.4); White Blood Count 8.8 K/mm3 (4.5-10.0)
[2025-01-26 06:21] LABS: Alanine Aminotransferase 365 U/L (6-35); Albumin Level 3.9 g/dL (3.5-5.1); Alkaline Phosphatase 114 U/L (38-126); Anion Gap 9 mmol/L (4-12); Aspartate Amino Transferase 198 U/L (14-36); Bilirubin,Total 2.1 mg/dL (0.2-1.3); Blood Urea Nitrogen 7 mg/dL (7-17); Calcium 8.4 mg/dL (8.4-10.2); Carbon Dioxide 21 mmol/L (22-30); Chloride 108 mmol/L (98-107); Estimated CRCL calculation 101 ml/min; Estimated Glomerular Filt Rate > 60; Glucose 108 mg/dL (65-110); Magnesium 2.1 mg/dL (1.6-2.3); Potassium 3.5 mmol/L (3.4-5.0); Sodium 138 mmol/L (137-145); Total Protein 6.5 g/dL (6.3-8.2)
[2025-01-26 06:56] LABS: Lipase 8148 U/L (23-300)
[2025-01-26 07:09] LABS: GGT 281 IU/L (0-60)
--- NOTE | 2025-01-26 07:41 | P.PNIM_ITS ---
Progress Note: A&P Assessment and Plan (1) Abnormal finding of biliary tract: Code(s): R19.8 - Other specified symptoms and signs involving the digestive system and abdomen Status: Acute Assessment and Plan: * Abdomen/pelvis CT: Mild intrahepatic and extrahepatic biliary duct dilation and gallbladder distension, consider MRCP * Abdomen ultrasound: Cholelithiasis with mildly distended gallbladder, and biliary duct dilation, cholecystitis/choledocholithiasis not excluded * AST/ALT: 475/492, normal alk phos, total bili 6.1 * P.r.n. pain control * Gentle IV fluid resuscitation * Diet: NPO * MRCP: Cholelithiasis/choledocholithiasis with 2 mm currently nonobstructing gallstone in the midportion of the common bile duct. The mild intra and extra hepatic biliary ductal dilation is also mild dilation the common bile duct could be related to prior prior or intermittent obstruction. * Monitor vital signs, I and O's, check stool output * Monitor serum electrolytes and CBC * GI consulted -appreciate further recommendations * ERCP on 01/25: Stone removal with sphincterotomy (2) Choledocholithiasis: Code(s): K80.50 - Calculus of bile duct without cholangitis or cholecystitis without obstruction Status: Acute Assessment and Plan: * See problem 1 (3) Elevated liver enzymes: Code(s): R74.8 - Abnormal levels of other serum enzymes Status: Acute Assessment and Plan: * See problem 1 (4) Pancreatitis: Code(s): K85.90 - Acute pancreatitis without necrosis or infection, unspecified Status: Acute Assessment and Plan: * acute, likely secondary to post ERCP * IVF: Lactated Ringer's 125 mL/hour * trend lipase, currently: 8148 * trend LFTs. * pain control with Dilaudid 0.5 mg q.3 hours * Zofran prn for nausea * GI consulted, awaiting further recommendations * Clear liquid diet Subjective Date/time seen: 01/26/25 07:41 Interval history: 44 year old female with a past medical history of Gallbladder disease who presents to the hospital with RUQ abdominal pain for the past 3 days. She states this pain is intermittent and radiates to her back. 01/26/2025 Patient sitting uncomfortably in bed at time of exam. Endorsing some right upper quadrant discomfort. ERCP was performed yesterday with stone removal. Lipase inc reased from 58 -> 8148, likely secondary to ERCP. General surgery consulted for possible need for coleman - will determine timing based on resolution of pancreatitis. Dilaudid 0.5mg q3hr PRN for pain control. Will also order prn zofran for nausea and continue ibuprofen for headache. Review of Systems Review of Systems: All systems reviewed & are unremarkable except as noted in HPI and below Exam Narrative: Gen -uncomfortable, well appearing female in no acute respiratory distress who is nontoxic-appearing lying semi recumbent in bed HEENT - normocephalic. Atraumatic. Pupils equal round and reactive. Extraocular motions intact. Sclera clear and anicteric. Nares patent. Moist mucous membranes. No facial asymmetry. Neck - neck was supple. No dominant adenopathy, thyromegaly or masses. 2+ carotid upstrokes without bruits. Chest - lungs are clear to auscultation bilaterally. No wheezes or crackles. CV - heart was regular rate and rhythm. S1-S2. No murmurs gallops or rubs. Abd -tender to palpation in the right upper quadrant, abdomen was soft. Nondistended. Positive bowel sounds. No organomegaly or masses. Ext - no clubbing, cyanosis or edema. 2+ DP pulses bilaterally. Neuro - patient is alert and oriented x4. Strength is 5/5 in both upper and lower extremities. Cranial nerves 2-12 are intact. Speech is clear. Psych - normal mood and affect. Patient is pleasant and cooperative. Skin -jaundiced, warm and dry. No rashes noted. Objective Data Vital Signs Vital Signs: Vital Signs - 24 hr 01/25/25 08:00 01/25/25 09:30 01/25/25 14:23 Temperature 98.8 F 98.4 F Pulse Rate 72 72 Respiratory Rate 16 16 Blood Pressure 113/69 113/69 Pulse Oximetry 99 99 Oxygen Delivery Room Air Oxygen Flow Rate 01/25/25 15:17 01/25/25 16:25 01/25/25 16:35 Temperature 98.3 F 97.3 F L Pulse Rate 66 103 H 96 Respiratory Rate 19 23 H 20 Blood Pressure 123/66 136/69 119/64 Pulse Oximetry 100 98 98 Oxygen Delivery Room Air Nasal Cannula Room Air Oxygen Flow Rate 2 01/25/25 16:45 01/25/25 16:55 01/25/25 17:05 Temperature 97.7 F Pulse Rate 81 77 68 Respiratory Rate 17 16 16 Blood Pressure 111/60 115/62 117/63 Pulse Oximetry 99 100 99 Oxygen Delivery Room Air Room Air Room Air Oxygen Flow Rate 01/25/25 17:15 01/25/25 17:25 01/25/25 20:00 Temperature 98.0 F Pulse Rate 64 66 Respiratory Rate 17 15 Blood Pressure 112/64 113/68 Pulse Oximetry 98 97 Oxygen Delivery Room Air Room Air Room Air Oxygen Flow Rate 01/26/25 00:00 Temperature 97.8 F Pulse Rate 92 Respiratory Rate 16 Blood Pressure 104/64 Pulse Oximetry 97 Oxygen Delivery Oxygen Flow Rate Intake/Output Intake/Output: Intake & Output 01/23/25 01/24/25 01/25/25 01/26/25 23:59 23:59 23:59 23:59 Intake Total 1460 Balance 1460 Meds/Results Medications: Active Medications Generic Name Dose Route Start Last Admin Trade Name Freq PRN Reason Stop Dose Admin Hydromorphone HCl 0.5 mg 01/26/25 02:47 01/26/25 03:05 Hydromorphone Hcl Inj (*Crx) 1 Mg/Ml Syr IV PUSH 0.5 mg Q3H PRN Administration Pain Rated 7-10 Ibuprofen 600 mg 01/25/25 11:45 01/26/25 01:26 Ibuprofen 600 Mg Tablet PO 600 mg Q6H PRN Administration Cramping Radiology Results: ITS Impressions Abdomen/Pelvis CT 01/25/25 06:59 IMPRESSION: 1. Mild intrahepatic and extrahepatic biliary duct dilatation and gallbladder distention. Consider MRCP. Abdomen Ultrasound 01/25/25 10:13 IMPRESSION: 1. Cholelithiasis with mildly distended gallbladder, and biliary ductal dilatation. Cholecystitis/choledocholithiasis is not excluded. 2. Exam somewhat limited as above. MRCP 01/25/25 11:31 IMPRESSION: 1. Cholelithiasis/choledocholithiasis with 2 mm currently nonobstructing gallstone in the midportion of the common bile duct. The mild intra and extra hepatic biliary ductal dilation is also mild dilation the common bile duct could be related to prior prior or intermittent obstruction. Endo Retro Cholangiopancreatogram 01/25/25 17:16 IMPRESSION: Fluoroscopy used during ERCP procedure. Labs Labs: Laboratory Results - last 24 hr 01/25/25 01/26/25 10:00 05:51 WBC 8.8 RBC 4.20 Hgb 12.0 Hct 36.5 L MCV 86.9 MCH 28.6 MCHC 32.9 RDW 13.7 Plt Count 211 MPV 10.2 Immature Gran % (Auto) 0.3 Neut % (Auto) 83.9 H Lymph % (Auto) 8.5 L [place] % (Auto) 6.5 Eos % (Auto) 0.6 Baso % (Auto) 0.2 Lymph # (Auto) 0.75 L [place] # (Auto) 0.6 Eos # (Auto) 0.1 Baso # (Auto) 0.0 Abs Immat Gran (auto) 0.03 Absolute Neuts (auto) 7.4 H Absolute Nucleated RBC 0.000 Nucleated RBC % 0.0 Sodium 138 Potassium 3.5 Chloride 108 H Carbon Dioxide 21 L Anion Gap 9 BUN 7 Creatinine 0.64 L Estim Creat Clear Calc 101 Estimated GFR > 60 Glucose 108 Calcium 8.4 Magnesium 2.1 Iron 87 TIBC 253 L % Saturation 34 Ferritin 295.00 H Total Bilirubin 2.1 H Direct Bilirubin 0.0 Indirect Bilirubin 1.8 H GGT 281 H AST 198 H ALT 365 H Alkaline Phosphatase 114 Total Protein 6.5 Albumin 3.9 Ceruloplasmin 30.6 Lipase 8148 H JAXON Screen Cancelled JAXON Titer Cancelled JAXON Titer 2 Cancelled JAXON Titer 3 Cancelled JAXON Pattern Cancelled JAXON Pattern 2 Cancelled JAXON Pattern 3 Cancelled JAXON Comment Cancelled Hepatitis A IgM Ab Negative Hep Bs Antigen Negative Hep B Core IgM Ab Negative Hepatitis C Ab Screen Negative Quality VTE Prophylaxis VTE prophylaxis: mechanical ordered
--- NOTE | 2025-01-26 11:17 | P.CONGS_ITS ---
Assessment and Plan Assessment and plan (1) Choledocholithiasis: Code(s): K80.50 - Calculus of bile duct without cholangitis or cholecystitis without obstruction Status: Acute Assessment and Plan: status post ERCP with stone removal and sphincterotomy, patient will need interval cholecystectomy, long discussion with patient and timing to be determine based on resolution of pancreatitis (2) Pancreatitis: Code(s): K85.90 - Acute pancreatitis without necrosis or infection, unspecified Status: Acute Assessment and Plan: lipase elevated today with acute onset of symptoms, likely post ERCP pancreatitis, continue clears for now History of Present Illness Consult details Consult date: 01/26/25 Reason for consult: gallstones Requesting physician: Aman Hirsch MD Narrative: The patient is a 44-year-old female that initially presented to the emergency department complaining of severe upper abdominal pain, mostly on the right side. Workup, including imaging, was significant for cholecystitis, choledocholithiasis. The patient was admitted and subsequently underwent ERCP. At that time, she underwent stone removal and sphincterotomy. We are now consulted for possible interval cholecystectomy. Of note, the patient is complaining of more epigastric abdominal pain radiating to her back today. She reports poor appetite and some nausea. Review of Systems 2 Review of Systems: All systems reviewed & are unremarkable except as noted in HPI and below PMFSH Past Medical History Medical History Encounter to establish care Family History Family History Father Parkinson disease Sibling Hypertension Mother Alzheimer dementia Social History Social History Smoking status: Never smoker Second hand tobacco smoke exposure: Yes Alcohol intake: current Drinks per week: 1 Substance use: current Substance use type: marijuana Other substance usage details: 1xper mo Do You Feel Safe in your Home?: Yes Lack of Transportation: No Lack of Food: Never True Current Housing: I Have Housing Concerned About Future Housing: No Difficulty Paying Gas/Electric Bills: No Difficulty Paying for Meds: No Currently Unemployed: No Education: Associate Degree Difficulty w/ Childcare or Family Care: No Living arrangements: with family Occupation/Education: occupation Gender identity (if verbalized by the patient): Female Spiritual care concerns: No Agree to blood products: Yes Meds Home Medications and Allergies Home Medications ?Medication ?Instructions ?Recorded ?Confirmed ?Type No Home Medications 06/20/24 01/25/25 H istory Allergies Allergy/AdvReac Type Severity Reaction Status Date / Time No Known Allergies Allergy Mild Verified 01/25/25 15:17 Vital Signs Vital Signs - 24 hr 01/25/25 14:23 01/25/25 15:17 01/25/25 16:25 Temperature 36.9 C 36.8 C 36.3 C L Pulse Rate 72 66 103 H Respiratory Rate 16 19 23 H Blood Pressure 113/69 123/66 136/69 Pulse Oximetry 99 100 98 Oxygen Delivery Room Air Nasal Cannula Oxygen Flow Rate 2 01/25/25 16:35 01/25/25 16:45 01/25/25 16:55 Temperature 36.5 C Pulse Rate 96 81 77 Respiratory Rate 20 17 16 Blood Pressure 119/64 111/60 115/62 Pulse Oximetry 98 99 100 Oxygen Delivery Room Air Room Air Room Air Oxygen Flow Rate 01/25/25 17:05 01/25/25 17:15 01/25/25 17:25 Temperature 36.7 C Pulse Rate 68 64 66 Respiratory Rate 16 17 15 Blood Pressure 117/63 112/64 113/68 Pulse Oximetry 99 98 97 Oxygen Delivery Room Air Room Air Room Air Oxygen Flow Rate 01/25/25 20:00 01/26/25 00:00 01/26/25 08:00 Temperature 36.6 C Pulse Rate 92 Respiratory Rate 16 Blood Pressure 104/64 Pulse Oximetry 97 Oxygen Delivery Room Air Room Air Oxygen Flow Rate Exam 2 Const: General: cooperative, no acute distress, ill appearing and uncomfortable HENMT: Head: normal to inspection, normocephalic and atraumatic Eyes: General: appearance normal, both eyes and all related structures Neck: Neck: normal visual inspection, full ROM and no lymphadenopathy Resp: Auscultation: clear to auscultation bilaterally Cardio: Rate: regular rate Rhythm: regular rhythm GI: Inspection: normal to inspection and distended GI Palp: Yes abdominal tenderness, Yes Soft to palpation, Yes Tenderness to palpation present (GI), No Guarding due to palpation present (GI) and No Rigid due to palpation Skin: General skin exam: normal color and no rashes or lesions noted Neuro: General: patient oriented x3 and CN's II-XI intact bilaterally Extrem: General: normal to inspection and full ROM Results Labs 01/26/25 05:51 01/26/25 05:51 Labs: Abnormal lab results 01/25/25 01/26/25 Range/Units 10:00 05:51 Hct 36.5 L (37.0-47.0) % Neut % (Auto) 83.9 H (45.5-73.1) % Lymph % (Auto) 8.5 L (18.3-44.2) % Lymph # (Auto) 0.75 L (0.9-3.2) K/mm3 Absolute Neuts (auto) 7.4 H (1.3-6.7) K/mm3 Chloride 108 H (98-107) mmol/L Carbon Dioxide 21 L (22-30) mmol/L Creatinine 0.64 L (0.7-1.0) mg/dL Total Bilirubin 2.1 H (0.2-1.3) mg/dL GGT 281 H (0-60) IU/L AST 198 H (14-36) U/L ALT 365 H (6-35) U/L Lipase 8148 H (23-300) U/L Diabetes panel 01/26/25 Range/Units 05:51 Sodium 138 (137-145) mmol/L Potassium 3.5 (3.4-5.0) mmol/L Chloride 108 H (98-107) mmol/L Carbon Dioxide 21 L (22-30) mmol/L BUN 7 (7-17) mg/dL Creatinine 0.64 L (0.7-1.0) mg/dL Glucose 108 (65-110) mg/dL Calcium 8.4 (8.4-10.2) mg/dL AST 198 H (14-36) U/L ALT 365 H (6-35) U/L Alkaline Phosphatase 114 (38-126) U/L Total Protein 6.5 (6.3-8.2) g/dL Albumin 3.9 (3.5-5.1) g/dL Calcium panel 01/26/25 Range/Units 05:51 Calcium 8.4 (8.4-10.2) mg/dL Albumin 3.9 (3.5-5.1) g/dL Pituitary panel 01/26/25 Range/Units 05:51 Sodium 138 (137-145) mmol/L Potassium 3.5 (3.4-5.0) mmol/L Chloride 108 H (98-107) mmol/L Carbon Dioxide 21 L (22-30) mmol/L BUN 7 (7-17) mg/dL Creatinine 0.64 L (0.7-1.0) mg/dL Glucose 108 (65-110) mg/dL Calcium 8.4 (8.4-10.2) mg/dL Adrenal panel 01/26/25 Range/Units 05:51 Sodium 138 (137-145) mmol/L Potassium 3.5 (3.4-5.0) mmol/L Chloride 108 H (98-107) mmol/L Carbon Dioxide 21 L (22-30) mmol/L BUN 7 (7-17) mg/dL Creatinine 0.64 L (0.7-1.0) mg/dL Glucose 108 (65-110) mg/dL Calcium 8.4 (8.4-10.2) mg/dL Total Bilirubin 2.1 H (0.2-1.3) mg/dL AST 198 H (14-36) U/L ALT 365 H (6-35) U/L Alkaline Phosphatase 114 (38-126) U/L Total Protein 6.5 (6.3-8.2) g/dL Albumin 3.9 (3.5-5.1) g/dL All other labs normal.
[2025-01-26] MEDS: LACTATED RINGERS 1,000 ML 125 ML IV CONT ×2 (12:34→20:42)
[2025-01-26] MEDS: ONDANSETRON INJ 4 MG/2 ML VIAL IV PUSH ×2 (12:41→16:49)
[2025-01-26 14:00] VITALS: BP 109/64; PULSE 86; RESP 18; TEMP 36.9; O2SAT 97
--- NOTE | 2025-01-26 14:56 | P.PNGI_ITS ---
Progress Note: A&P Assessment and Plan (1) Choledocholithiasis: Code(s): K80.50 - Calculus of bile duct without cholangitis or cholecystitis without obstruction Status: Acute Assessment and Plan: treated with ercp, stone removed will need interval cholecystectomy, surgery already on board (2) Elevated liver enzymes: Code(s): R74.8 - Abnormal levels of other serum enzymes Status: Acute Assessment and Plan: trending down after stone removed with ercp, this was causing partial bile duct obstruction (3) Post-ERCP acute pancreatitis: Code(s): K91.89 - Other postprocedural complications and disorders of digestive system; K85.90 - Acute pancreatitis without necrosis or infection, unspecified Status: Acute Assessment and Plan: had pain, nausea and elevated lipase continue LR iv fluids, pain meds as needed liquid diet (4) Upper abdominal pain: Code(s): R10.10 - Upper abdominal pain, unspecified Status: Acute Subjective Date/time seen: 01/26/25 14:56 Interval history: easy ercp with sphincterotomy and removal of stone she had abdominal discomfort and nausea, noted elevated lipase c/w post ercp pancreatitis she is comfortable after pain med, still some pain Review of Systems Review of Systems: All systems reviewed & are unremarkable except as noted in HPI and below Exam Const: General: comfortable and no acute distress HENMT: Face/Nose/Sinus: Normal nares present Eyes: General: appearance normal, both eyes and all related structures Neck: Neck: supple Resp: Auscultation: clear to auscultation bilaterally Cardio: Rate: regular rate Rhythm: regular rhythm GI: Inspection: non-distended GI Palp: Yes Soft to palpation and Yes Tenderness to palpation present (GI) (mild TTP in epigastric, no rebound) Auscultation: normal bowel sounds Skin: General skin exam: normal color Neuro: Speech: normal speech Extrem: General: normal to inspection Psych: Mental Status: mental status grossly normal Objective Data Vital Signs Vital Signs: Vital Signs - 24 hr 01/25/25 15:17 01/25/25 16:25 01/25/25 16:35 Temperature 98.3 F 97.3 F L Pulse Rate 66 103 H 96 Respiratory Rate 19 23 H 20 Blood Pressure 123/66 136/69 119/64 Pulse Oximetry 100 98 98 Oxygen Delivery Room Air Nasal Cannula Room Air Oxygen Flow Rate 2 01/25/25 16:45 01/25/25 16:55 01/25/25 17:05 Temperature 97.7 F Pulse Rate 81 77 68 Respiratory Rate 17 16 16 Blood Pressure 111/60 115/62 117/63 Pulse Oximetry 99 100 99 Oxygen Delivery Room Air Room Air Room Air Oxygen Flow Rate 01/25/25 17:15 01/25/25 17:25 01/25/25 20:00 Temperature 98.0 F Pulse Rate 64 66 Respiratory Rate 17 15 Blood Pressure 112/64 113/68 Pulse Oximetry 98 97 Oxygen Delivery Room Air Room Air Room Air Oxygen Flow Rate 01/26/25 00:00 01/26/25 08:00 Temperature 97.8 F Pulse Rate 92 Respiratory Rate 16 Blood Pressure 104/64 Pulse Oximetry 97 Oxygen Delivery Room Air Oxygen Flow Rate Intake/Output Intake/Output: Intake & Output 01/23/25 01/24/25 01/25/25 01/26/25 23:59 23:59 23:59 23:59 Intake Total 1460 480 Balance 1460 480 Meds/Results Medications: Active Medications Generic Name Dose Route Start Last Admin Trade Name Freq PRN Reason Stop Dose Admin Hydromorphone HCl 0.5 mg 01/26/25 02:47 01/26/25 12:34 Hydromorphone Hcl Inj (*Crx) 1 Mg/Ml Syr IV PUSH 0.5 mg Q3H PRN Administration Pain Rated 7-10 Lactated Ringer's 1,000 mls @ 125 mls/hr 01/26/25 12:30 01/26/25 12:34 Lr - Lactated Ringers Iv IV CONT 125 mls/hr .Q8H PURA Administration Ibuprofen 600 mg 01/25/25 11:45 01/26/25 12:33 Ibuprofen 600 Mg Tablet PO 600 mg Q6H PRN Administration Cramping Ondansetron HCl 4 mg 01/26/25 10:24 01/26/25 12:41 Ondansetron Inj 4 Mg/2 Ml Vial IV PUSH 4 mg Q4H PRN Administration Nausea And Vomiting Radiology Results: ITS Impressions Abdomen/Pelvis CT 01/25/25 06:59 IMPRESSION: 1. Mild intrahepatic and extrahepatic biliary duct dilatation and gallbladder distention. Consider MRCP. Abdomen Ultrasound 01/25/25 10:13 IMPRESSION: 1. Cholelithiasis with mildly distended gallbladder, and biliary ductal dilatation. Cholecystitis/choledocholithiasis is not excluded. 2. Exam somewhat limited as above. MRCP 01/25/25 11:31 IMPRESSION: 1. Cholelithiasis/choledocholithiasis with 2 mm currently nonobstructing gallstone in the midportion of the common bile duct. The mild intra and extra hepatic biliary ductal dilation is also mild dilation the common bile duct could be related to prior prior or intermittent obstruction. Endo Retro Cholangiopancreatogram 01/25/25 17:16 IMPRESSION: Fluoroscopy used during ERCP procedure. Labs Labs: Laboratory Results - last 24 hr 01/25/25 01/26/25 10:00 05:51 WBC 8.8 RBC 4.20 Hgb 12.0 Hct 36.5 L MCV 86.9 MCH 28.6 MCHC 32.9 RDW 13.7 Plt Count 211 MPV 10.2 Immature Gran % (Auto) 0.3 Neut % (Auto) 83.9 H Lymph % (Auto) 8.5 L [place] % (Auto) 6.5 Eos % (Auto) 0.6 Baso % (Auto) 0.2 Lymph # (Auto) 0.75 L [place] # (Auto) 0.6 Eos # (Auto) 0.1 Baso # (Auto) 0.0 Abs Immat Gran (auto) 0.03 Absolute Neuts (auto) 7.4 H Absolute Nucleated RBC 0.000 Nucleated RBC % 0.0 Sodium 138 Potassium 3.5 Chloride 108 H Carbon Dioxide 21 L Anion Gap 9 BUN 7 Creatinine 0.64 L Estim Creat Clear Calc 101 Estimated GFR > 60 Glucose 108 Calcium 8.4 Magnesium 2.1 Total Bilirubin 2.1 H Direct Bilirubin 0.0 GGT 281 H AST 198 H ALT 365 H Alkaline Phosphatase 114 Total Protein 6.5 Albumin 3.9 Ceruloplasmin 30.6 Lipase 8148 H Mitochondria M2 Ab <20.0 Actin IgG Antibody 11
[2025-01-26 20:00] VITALS: PULSE 86; RESP 18; O2SAT 97
[2025-01-26 21:52] VITALS: BP 111/76; PULSE 88; RESP 20; TEMP 36.6; O2SAT 96
[2025-01-27 05:02] VITALS: TEMP 37
[2025-01-27] MEDS: LACTATED RINGERS 1,000 ML 125 ML IV CONT ×3 (05:02→20:43)
[2025-01-27] MEDS: IBUPROFEN 600 MG TABLET PO ×2 (05:02→17:17)
[2025-01-27 05:09] VITALS: BP 123/75; PULSE 95; RESP 18; TEMP 36.1; O2SAT 99
[2025-01-27 06:31] LABS: Hematocrit 34.3 % (37.0-47.0); Hemoglobin 11.1 g/dL (12.0-15.0); Immature Granulocyte Percent A 0.4 % (0-0.5); Lymphocytes Absolute Auto 0.83 K/mm3 (0.9-3.2); Mean Corpuscular HGB Conc 32.4 g/dl (32-36); Mean Corpuscular Hemoglobin 28.3 pg (26-34); Mean Corpuscular Volume 87.5 fl (80-100); Nucleated Red Blood Cells Absolute Auto 0.000 K/mm3 (0.0-0.012); Nucleated Red Blood Cells Perc 0.0 % (0.0-0.2); Platelet Count Result 188 k/mm3 (150-375); Red Blood Count 3.92 M/mm3 (4.2-5.4); White Blood Count 9.9 K/mm3 (4.5-10.0)
[2025-01-27 06:35] LABS: Alanine Aminotransferase 288 U/L (6-35); Albumin Level 3.5 g/dL (3.5-5.1); Alkaline Phosphatase 103 U/L (38-126); Anion Gap 5 mmol/L (4-12); Aspartate Amino Transferase 132 U/L (14-36); Bilirubin,Total 1.6 mg/dL (0.2-1.3); Blood Urea Nitrogen 5 mg/dL (7-17); Calcium 8.5 mg/dL (8.4-10.2); Carbon Dioxide 25 mmol/L (22-30); Chloride 108 mmol/L (98-107); Estimated CRCL calculation 107 ml/min; Estimated Glomerular Filt Rate > 60; Glucose 102 mg/dL (65-110); Lipase 1109 U/L (23-300); Magnesium 2.1 mg/dL (1.6-2.3); Potassium 3.3 mmol/L (3.4-5.0); Sodium 138 mmol/L (137-145); Total Protein 6.1 g/dL (6.3-8.2)
--- NOTE | 2025-01-27 08:17 | P.PNIM_ITS ---
Progress Note: A&P Assessment and Plan (1) Abnormal finding of biliary tract: Code(s): R19.8 - Other specified symptoms and signs involving the digestive system and abdomen Status: Acute Assessment and Plan: * Abdomen/pelvis CT: Mild intrahepatic and extrahepatic biliary duct dilation and gallbladder distension, consider MRCP * Abdomen ultrasound: Cholelithiasis with mildly distended gallbladder, and biliary duct dilation, cholecystitis/choledocholithiasis not excluded * AST/ALT: 475/492, normal alk phos, total bili 6.1 * P.r.n. pain control * Gentle IV fluid resuscitation * Diet: NPO * MRCP: Cholelithiasis/choledocholithiasis with 2 mm currently nonobstructing gallstone in the midportion of the common bile duct. The mild intra and extra hepatic biliary ductal dilation is also mild dilation the common bile duct could be related to prior prior or intermittent obstruction. * Monitor vital signs, I and O's, check stool output * Monitor serum electrolytes and CBC * GI consulted -appreciate further recommendations * ERCP on 01/25: Stone removal with sphincterotomy (2) Choledocholithiasis: Code(s): K80.50 - Calculus of bile duct without cholangitis or cholecystitis without obstruction Status: Acute Assessment and Plan: * See problem 1 * General surgery consultation * Plan for interval cholecystectomy tomorrow * NPO at midnight (3) Elevated liver enzymes: Code(s): R74.8 - Abnormal levels of other serum enzymes Status: Acute Assessment and Plan: * See problem 1 (4) Pancreatitis: Code(s): K85.90 - Acute pancreatitis without necrosis or infection, unspecified Status: Acute Assessment and Plan: * acute, likely secondary to post ERCP * IVF: Lactated Ringer's 125 mL/hour * trend lipase, currently: 8148 * trend LFTs. * pain control with Dilaudid 0.5 mg q.3 hours * Zofran prn for nausea * GI consulted, awaiting further recommendations * Clear liquid diet * Lipase down trendin -> 1109 * Likely okay to advanced diet today, pending GI recommendations Subjective Date/time seen: 01/27/25 08:17 Interval history: 44 year old female with a past medical history of Gallbladder disease who presents to the hospital with RUQ abdominal pain for the past 3 days. She states this pain is intermittent and radiates to her back. 01/27/2025 Patient sitting comfortably in bed at time of exam. States that she feels much better today than she did yesterday. Lipase down from a 8148 -> 1109. Plan is for cholecystectomy tomorrow per General surgery. Likely acute advanced diet today, but will will be NPO at midnight. Review of Systems Review of Systems: All systems reviewed & are unremarkable except as noted in HPI and below Exam Narrative: Gen -comfortable, well appearing female in no acute respiratory distress who is nontoxic-appearing lying semi recumbent in bed HEENT - normocephalic. Atraumatic. Pupils equal round and reactive. E xtraocular motions intact. Sclera clear and anicteric. Nares patent. Moist mucous membranes. No facial asymmetry. Neck - neck was supple. No dominant adenopathy, thyromegaly or masses. 2+ carotid upstrokes without bruits. Chest - lungs are clear to auscultation bilaterally. No wheezes or crackles. CV - heart was regular rate and rhythm. S1-S2. No murmurs gallops or rubs. Abd -tender to palpation in the right upper quadrant, abdomen was soft. Nondistended. Positive bowel sounds. No organomegaly or masses. Ext - no clubbing, cyanosis or edema. 2+ DP pulses bilaterally. Neuro - patient is alert and oriented x4. Strength is 5/5 in both upper and lower extremities. Cranial nerves 2-12 are intact. Speech is clear. Psych - normal mood and affect. Patient is pleasant and cooperative. Skin -jaundiced, warm and dry. No rashes noted. Objective Data Vital Signs Vital Signs: Vital Signs - 24 hr 01/26/25 14:00 01/26/25 20:00 01/26/25 21:52 Temperature 98.4 F 98 F Pulse Rate 86 86 88 Respiratory Rate 18 18 20 Blood Pressure 109/64 111/76 Pulse Oximetry 97 97 96 Oxygen Delivery Room Air 01/27/25 05:02 01/27/25 05:09 Temperature 98.6 F 97 F L Pulse Rate 95 Respiratory Rate 18 Blood Pressure 123/75 Pulse Oximetry 99 Oxygen Delivery Intake/Output Intake/Output: Intake & Output 01/24/25 01/25/25 01/26/25 01/27/25 23:59 23:59 23:59 23:59 Intake Total 1460 3700 1700 Balance 1460 3700 1700 Meds/Results Medications: Active Medications Generic Name Dose Route Start Last Admin Trade Name Christen PRN Reason Stop Dose Admin Hydromorphone HCl 0.5 mg 01/26/25 02:47 01/26/25 16:49 Hydromorphone Hcl Inj (*Crx) 1 Mg/Ml Syr IV PUSH 0.5 mg Q3H PRN Administration Pain Rated 7-10 Lactated Ringer's 1,000 mls @ 125 mls/hr 01/26/25 12:30 01/27/25 05:02 Lr - Lactated Ringers Iv IV CONT 125 mls/hr .Q8H PURA Administration Ibuprofen 600 mg 01/25/25 11:45 01/27/25 05:02 Ibuprofen 600 Mg Tablet PO 600 mg Q6H PRN Administration Cramping Ondansetron HCl 4 mg 01/26/25 10:24 01/26/25 16:49 Ondansetron Inj 4 Mg/2 Ml Vial IV PUSH 4 mg Q4H PRN Administration Nausea And Vomiting Radiology Results: ITS Impressions Abdomen/Pelvis CT 01/25/25 06:59 IMPRESSION: 1. Mild intrahepatic and extrahepatic biliary duct dilatation and gallbladder distention. Consider MRCP. Abdomen Ultrasound 01/25/25 10:13 IMPRESSION: 1. Cholelithiasis with mildly distended gallbladder, and biliary ductal dilatation. Cholecystitis/choledocholithiasis is not excluded. 2. Exam somewhat limited as above. MRCP 01/25/25 11:31 IMPRESSION: 1. Cholelithiasis/choledocholithiasis with 2 mm currently nonobstructing gallstone in the midportion of the common bile duct. The mild intra and extra hepatic biliary ductal dilation is also mild dilation the common bile duct could be related to prior prior or intermittent obstruction. Endo Retro Cholangiopancreatogram 01/25/25 17:16 IMPRESSION: Fluoroscopy used during ERCP procedure. Labs Labs: Laboratory Results - last 24 hr 01/25/25 01/27/25 10:00 06:06 WBC 9.9 RBC 3.92 L Hgb 11.1 L Hct 34.3 L MCV 87.5 MCH 28.3 MCHC 32.4 RDW 13.5 Plt Count 188 MPV 10.9 H Immature Gran % (Auto) 0.4 Neut % (Auto) 82.1 H Lymph % (Auto) 8.4 L [place] % (Auto) 8.0 Eos % (Auto) 1.0 Baso % (Auto) 0.1 L Lymph # (Auto) 0.83 L [place] # (Auto) 0.8 H Eos # (Auto) 0.1 Baso # (Auto) 0.0 Abs Immat Gran (auto) 0.04 H Absolute Neuts (auto) 8.1 H Absolute Nucleated RBC 0.000 Nucleated RBC % 0.0 Sodium 138 Potassium 3.3 L Chloride 108 H Carbon Dioxide 25 Anion Gap 5 BUN 5 L Creatinine 0.60 L Estim Creat Clear Calc 107 Estimated GFR > 60 Glucose 102 Calcium 8.5 Magnesium 2.1 Total Bilirubin 1.6 H AST 132 H ALT 288 H Alkaline Phosphatase 103 Total Protein 6.1 L Albumin 3.5 Lipase 1109 H Mitochondria M2 Ab <20.0 Actin IgG Antibody 11 Quality VTE Prophylaxis VTE prophylaxis: mechanical ordered
--- NOTE | 2025-01-27 09:44 | PM.PNGS ---
Progress Note: A&P Assessment and Plan (1) Choledocholithiasis: Code(s): K80.50 - Calculus of bile duct without cholangitis or cholecystitis without obstruction Status: Acute Assessment and Plan: LFTs trending towards normal, long discussion regarding timing of interval cholecystectomy, will make NPO after midnight in case decision is made for interval cholecystectomy tomorrow, will continue to follow labs (2) Post-ERCP acute pancreatitis: Code(s): K91.89 - Other postprocedural complications and disorders of digestive system; K85.90 - Acute pancreatitis without necrosis or infection, unspecified Status: Acute Assessment and Plan: lipase significantly improved, exam much improved, will await GI input but can likely advance diet today Subjective Subjective Date/Time Seen: 01/27/25 09:44 Interval history: feels much better this morning, pain almost completely resolved, tolerating clears Review of Systems Review of Systems: All systems reviewed & are unremarkable except as noted in HPI and below Exam Const: General: cooperative, comfortable and no acute distress Resp: Auscultation: clear to auscultation bilaterally Cardio: Rate: regular rate Rhythm: regular rhythm GI: Inspection: normal to inspection and distended GI Palp: Yes abdominal tenderness, Yes Soft to palpation, Yes Tenderness to palpation present (GI), No Guarding due to palpation present (GI) and No Rigid due to palpation Objective Data Vital Signs Vital Signs: Vital Signs - 24 hr 01/26/25 14:00 01/26/25 20:00 01/26/25 21:52 Temperature 36.9 C 36.6 C Pulse Rate 86 86 88 Respiratory Rate 18 18 20 Blood Pressure 109/64 111/76 Pulse Oximetry 97 97 96 Oxygen Delivery Room Air 01/27/25 05:02 01/27/25 05:09 Temperature 37.0 C 36.1 C L Pulse Rate 95 Respiratory Rate 18 Blood Pressure 123/75 Pulse Oximetry 99 Oxygen Delivery Intake/Output Intake/Output: Intake & Output 01/24/25 01/25/25 01/26/25 01/27/25 23:59 23:59 23:59 23:59 Intake Total 1460 3700 1700 Balance 1460 3700 1700 Meds/Results Medications: Active Medications Generic Name Dose Route Start Last Admin Trade Name Freq PRN Reason Stop Dose Admin Hydromorphone HCl 0.5 mg 01/26/25 02:47 01/26/25 16:49 Hydromorphone Hcl Inj (*Crx) 1 Mg/Ml Syr IV PUSH 0.5 mg Q3H PRN Administration Pain Rated 7-10 Lactated Ringer's 1,000 mls @ 125 mls/hr 01/26/25 12:30 01/27/25 05:02 Lr - Lactated Ringers Iv IV CONT 125 mls/hr .Q8H PURA Administration Ibuprofen 600 mg 01/25/25 11:45 01/27/25 05:02 Ibuprofen 600 Mg Tablet PO 600 mg Q6H PRN Administration Cramping Ondansetron HCl 4 mg 01/26/25 10:24 01/26/25 16:49 Ondansetron Inj 4 Mg/2 Ml Vial IV PUSH 4 mg Q4H PRN Administration Nausea And Vomiting Radiology Results: ITS Impressions Abdomen/Pelvis CT 01/25/25 06:59 IMPRESSION: 1. Mild intrahepatic and extrahepatic biliary duct dilatation and gallbladder distention. Consider MRCP. Abdomen Ultrasound 01/25/25 10:13 IMPRESSION: 1. Cholelithiasis with mildly distended gallbladder, and biliary ductal dilatation. Cholecystitis/choledocholithiasis is not excluded. 2. Exam somewhat limited as above. MRCP 01/25/25 11:31 IMPRESSION: 1. Cholelithiasis/choledocholithiasis with 2 mm currently nonobstructing gallstone in the midportion of the common bile duct. The mild intra and extra hepatic biliary ductal dilation is also mild dilation the common bile duct could be related to prior prior or intermittent obstruction. Endo Retro Cholangiopancreatogram 01/25/25 17:16 IMPRESSION: Fluoroscopy used during ERCP procedure. Labs Labs: Laboratory Results - last 24 hr 01/25/25 01/27/25 10:00 06:06 WBC 9.9 RBC 3.92 L Hgb 11.1 L Hct 34.3 L MCV 87.5 MCH 28.3 MCHC 32.4 RDW 13.5 Plt Count 188 MPV 10.9 H Immature Gran % (Auto) 0.4 Neut % (Auto) 82.1 H Lymph % (Auto) 8.4 L [place] % (Auto) 8.0 Eos % (Auto) 1.0 Baso % (Auto) 0.1 L Lymph # (Auto) 0.83 L [place] # (Auto) 0.8 H Eos # (Auto) 0.1 Baso # (Auto) 0.0 Abs Immat Gran (auto) 0.04 H Absolute Neuts (auto) 8.1 H Absolute Nucleated RBC 0.000 Nucleated RBC % 0.0 Sodium 138 Potassium 3.3 L Chloride 108 H Carbon Dioxide 25 Anion Gap 5 BUN 5 L Creatinine 0.60 L Estim Creat Clear Calc 107 Estimated GFR > 60 Glucose 102 Calcium 8.5 Magnesium 2.1 Total Bilirubin 1.6 H AST 132 H ALT 288 H Alkaline Phosphatase 103 Total Protein 6.1 L Albumin 3.5 Lipase 1109 H Mitochondria M2 Ab <20.0 Actin IgG Antibody 11
[2025-01-27 12:25] LABS: Alanine Aminotransferase 266 U/L (6-35); Albumin Level 3.6 g/dL (3.5-5.1); Alkaline Phosphatase 109 U/L (38-126); Aspartate Amino Transferase 117 U/L (14-36); Bilirubin,Total 1.5 mg/dL (0.2-1.3); Total Protein 6.1 g/dL (6.3-8.2)
[2025-01-27 14:00] VITALS: BP 110/64; PULSE 68; RESP 18; TEMP 36.9; O2SAT 98
--- NOTE | 2025-01-27 15:04 | WPDGIPROGNO ---
Progress Note: A&P Assessment and Plan (1) Choledocholithiasis: Code(s): K80.50 - Calculus of bile duct without cholangitis or cholecystitis without obstruction Status: Acute Assessment and Plan: treated with ercp, stone removed will need interval cholecystectomy, surgery is planning tomorrow npo after midnight (2) Elevated liver enzymes: Code(s): R74.8 - Abnormal levels of other serum enzymes Status: Acute Assessment and Plan: trending down after stone removed with ercp, this was causing partial bile duct obstruction bili down to 1.5 from 7 (3) Post-ERCP acute pancreatitis: Code(s): K91.89 - Other postprocedural complications and disorders of digestive system; K85.90 - Acute pancreatitis without necrosis or infection, unspecified Status: Acute Assessment and Plan: had pain, nausea and elevated lipase but is already much better s/p LR iv fluids (4) Upper abdominal pain: Code(s): R10.10 - Upper abdominal pain, unspecified Status: Acute Assessment and Plan: better Subjective Date/time seen: 01/27/25 15:04 Interval history: pain has improved today, much better and did not require any more pain med since last night no nausea Review of Systems Review of Systems: All systems reviewed & are unremarkable except as noted in HPI and below Exam Const: General: comfortable and no acute distress HENMT: Face/Nose/Sinus: Normal nares present Eyes: General: appearance normal, both eyes and all related structures Neck: Neck: supple Resp: Auscultation: clear to auscultation bilaterally Cardio: Rate: regular rate Rhythm: regular rhythm GI: Inspection: non-distended GI Palp: Yes Soft to palpation and Yes Tenderness to palpation present (GI) (mild TTP in epigastric, no rebound) Auscultation: normal bowel sounds Skin: General skin exam: normal color Neuro: Speech: normal speech Extrem: General: normal to inspection Psych: Mental Status: mental status grossly normal Objective Data Vital Signs Vital Signs: Vital Signs - 24 hr 01/26/25 20:00 01/26/25 21:52 01/27/25 05:02 Temperature 98 F 98.6 F Pulse Rate 86 88 Respiratory Rate 18 20 Blood Pressure 111/76 Pulse Oximetry 97 96 Oxygen Delivery Room Air 01/27/25 05:09 01/27/25 09:30 Temperature 97 F L Pulse Rate 95 Respiratory Rate 18 Blood Pressure 123/75 Pulse Oximetry 99 Oxygen Delivery Room Air Intake/Output Intake/Output: Intake & Output 01/24/25 01/25/25 01/26/25 01/27/25 23:59 23:59 23:59 23:59 Intake Total 1460 3700 2892.1 Balance 1460 3700 2892.1 Meds/Results Medications: Active Medications Generic Name Dose Route Start Last Admin Trade Name Freq PRN Reason Stop Dose Admin Hydromorphone HCl 0.5 mg 01/26/25 02:47 01/26/25 16:49 Hydromorphone Hcl Inj (*Crx) 1 Mg/Ml Syr IV PUSH 0.5 mg Q3H PRN Administration Pain Rated 7-10 Lactated Ringer's 1,000 mls @ 125 mls/hr 01/26/25 12:30 01/27/25 12:39 Lr - Lactated Ringers Iv IV CONT 125 mls/hr .Q8H PURA Administration Ibuprofen 600 mg 01/25/25 11:45 01/27/25 05:02 Ibuprofen 600 Mg Tablet PO 600 mg Q6H PRN Administration Cramping Ondansetron HCl 4 mg 01/26/25 10:24 01/26/25 16:49 Ondansetron Inj 4 Mg/2 Ml Vial IV PUSH 4 mg Q4H PRN Administration Nausea And Vomiting Radiology Results: ITS Impressions Abdomen/Pelvis CT 01/25/25 06:59 IMPRESSION: 1. Mild intrahepatic and extrahepatic biliary duct dilatation and gallbladder distention. Consider MRCP. Abdomen Ultrasound 01/25/25 10:13 IMPRESSION: 1. Cholelithiasis with mildly distended gallbladder, and biliary ductal dilatation. Cholecystitis/choledocholithiasis is not excluded. 2. Exam somewhat limited as above. MRCP 01/25/25 11:31 IMPRESSION: 1. Cholelithiasis/choledocholithiasis with 2 mm currently nonobstructing gallstone in the midportion of the common bile duct. The mild intra and extra hepatic biliary ductal dilation is also mild dilation the common bile duct could be related to prior prior or intermittent obstruction. Endo Retro Cholangiopancreatogram 01/25/25 17:16 IMPRESSION: Fluoroscopy used during ERCP procedure. Labs Labs: Laboratory Results - last 24 hr 01/27/25 01/27/25 06:06 12:09 WBC 9.9 RBC 3.92 L Hgb 11.1 L Hct 34.3 L MCV 87.5 MCH 28.3 MCHC 32.4 RDW 13.5 Plt Count 188 MPV 10.9 H Immature Gran % (Auto) 0.4 Neut % (Auto) 82.1 H Lymph % (Auto) 8.4 L [place] % (Auto) 8.0 Eos % (Auto) 1.0 Baso % (Auto) 0.1 L Lymph # (Auto) 0.83 L [place] # (Auto) 0.8 H Eos # (Auto) 0.1 Baso # (Auto) 0.0 Abs Immat Gran (auto) 0.04 H Absolute Neuts (auto) 8.1 H Absolute Nucleated RBC 0.000 Nucleated RBC % 0.0 Sodium 138 Potassium 3.3 L Chloride 108 H Carbon Dioxide 25 Anion Gap 5 BUN 5 L Creatinine 0.60 L Estim Creat Clear Calc 107 Estimated GFR > 60 Glucose 102 Calcium 8.5 Magnesium 2.1 Total Bilirubin 1.6 H 1.5 H Direct Bilirubin 0.0 AST 132 H 117 H ALT 288 H 266 H Alkaline Phosphatase 103 109 Total Protein 6.1 L 6.1 L Albumin 3.5 3.6 Lipase 1109 H
[2025-01-27 22:00] VITALS: BP 102/65; PULSE 76; RESP 18; TEMP 36.2; O2SAT 97
[2025-01-28] VITALS (12 sets, daily range): BP systolic 116–134; BP diastolic 65–83; PULSE 76–110; RESP 16–18; TEMP 36.1–37; O2SAT 94–100
[2025-01-28] MEDS: LACTATED RINGERS 1,000 ML 125 ML IV CONT ×2 (04:29→13:06)
[2025-01-28] MEDS: HYDROmorphone HCL INJ (*CRX) 1 MG/ML SYR 0.5 MG IV PUSH ×4 (04:32→23:47)
[2025-01-28 05:38] LABS: Hematocrit 31.3 % (37.0-47.0); Hemoglobin 10.2 g/dL (12.0-15.0); Immature Granulocyte Percent A 0.5 % (0-0.5); Lymphocytes Absolute Auto 0.87 K/mm3 (0.9-3.2); Mean Corpuscular HGB Conc 32.6 g/dl (32-36); Mean Corpuscular Hemoglobin 28.6 pg (26-34); Mean Corpuscular Volume 87.7 fl (80-100); Nucleated Red Blood Cells Absolute Auto 0.000 K/mm3 (0.0-0.012); Nucleated Red Blood Cells Perc 0.0 % (0.0-0.2); Platelet Count Result 165 k/mm3 (150-375); Red Blood Count 3.57 M/mm3 (4.2-5.4); White Blood Count 8.8 K/mm3 (4.5-10.0)
[2025-01-28 06:10] LABS: Alanine Aminotransferase 219 U/L (6-35); Albumin Level 3.2 g/dL (3.5-5.1); Alkaline Phosphatase 105 U/L (38-126); Anion Gap 6 mmol/L (4-12); Aspartate Amino Transferase 110 U/L (14-36); Bilirubin,Total 1.4 mg/dL (0.2-1.3); Blood Urea Nitrogen 7 mg/dL (7-17); Calcium 8.0 mg/dL (8.4-10.2); Carbon Dioxide 24 mmol/L (22-30); Chloride 107 mmol/L (98-107); Estimated CRCL calculation 112 ml/min; Estimated Glomerular Filt Rate > 60; Glucose 89 mg/dL (65-110); Magnesium 2.0 mg/dL (1.6-2.3); Potassium 3.1 mmol/L (3.4-5.0); Sodium 137 mmol/L (137-145); Total Protein 5.7 g/dL (6.3-8.2)
--- NOTE | 2025-01-28 07:27 | P.PNIM_ITS ---
Progress Note: A&P Assessment and Plan (1) Abnormal finding of biliary tract: Code(s): R19.8 - Other specified symptoms and signs involving the digestive system and abdomen Status: Acute Assessment and Plan: * Abdomen/pelvis CT: Mild intrahepatic and extrahepatic biliary duct dilation and gallbladder distension, consider MRCP * Abdomen ultrasound: Cholelithiasis with mildly distended gallbladder, and biliary duct dilation, cholecystitis/choledocholithiasis not excluded * AST/ALT: 475/492, normal alk phos, total bili 6.1 * P.r.n. pain control * Gentle IV fluid resuscitation * Diet: NPO * MRCP: Cholelithiasis/choledocholithiasis with 2 mm currently nonobstructing gallstone in the midportion of the common bile duct. The mild intra and extra hepatic biliary ductal dilation is also mild dilation the common bile duct could be related to prior prior or intermittent obstruction. * Monitor vital signs, I and O's, check stool output * Monitor serum electrolytes and CBC * GI consulted -appreciate further recommendations * ERCP on 01/25: Stone removal with sphincterotomy (2) Choledocholithiasis: Code(s): K80.50 - Calculus of bile duct without cholangitis or cholecystitis without obstruction Status: Acute Assessment and Plan: * See problem 1 * General surgery consultation * Plan for interval cholecystectomy today * NPO * To be reassessed by General surgery - depends on OR availability today (3) Elevated liver enzymes: Code(s): R74.8 - Abnormal levels of other serum enzymes Status: Acute Assessment and Plan: * See problem 1 (4) Pancreatitis: Code(s): K85.90 - Acute pancreatitis without necrosis or infection, unspecified Status: Acute Assessment and Plan: * acute, likely secondary to post ERCP * IVF: Lactated Ringer's 125 mL/hour * trend lipase, currently: 8148 * trend LFTs. * pain control with Dilaudid 0.5 mg q.3 hours * Zofran prn for nausea * GI consulted, awaiting further recommendations * Clear liquid diet * Lipase down trendin -> 1109 * NPO for possible interval cholecystectomy Subjective Date/time seen: 01/28/25 07:27 Interval history: 44 year old female with a past medical history of Gallbladder disease who presents to the hospital with RUQ abdominal pain for the past 3 days. She states this pain is intermittent and radiates to her back. 01/28/2025 Patient sitting comfortably in bed at time of exam. Pt doing well this morning, still having some RUQ/epigastric abd pain. Pending general surgery recommendations given pancreatitis seems to be improving. NPO today in preparation for possible cholecystectomy. Repeat Lipase pending. Remains afebrile without leukocytosis. LFTs continue to downtrend. Review of Systems Review of Systems: All systems reviewed & are unremarkable except as noted in HPI and below Exam Narrative: Gen -comfortable, well appearing female in no acute respiratory distress who is nontoxic-appearing lying semi recumbent in bed HEENT - normocephalic. Atraumatic. Pupils equal round and reactive. Extraocular motions intact. Sclera clear and anicteric. Nares patent. Moist mucous membranes. No facial asymmetry. Neck - neck was supple. No dominant adenopathy, thyromegaly or masses. 2+ carotid upstrokes without bruits. Chest - lungs are clear to auscultation bilaterally. No wheezes or crackles. CV - heart was regular rate and rhythm. S1-S2. No murmurs gallops or rubs. Abd -tender to palpation in the right upper quadrant, abdomen was soft. Nondistended. Positive bowel sounds. No organomegaly or masses. Ext - no clubbing, cyanosis or edema. 2+ DP pulses bilaterally. Neuro - patient is alert and oriented x4. Strength is 5/5 in both upper and lower extremities. Cranial nerves 2-12 are intact. Speech is clear. Psych - normal mood and affect. Patient is pleasant and cooperative. Skin -jaundiced, warm and dry. No rashes noted. Objective Data Vital Signs Vital Signs: Vital Signs - 24 hr 01/27/25 09:30 01/27/25 14:00 01/27/25 20:00 Temperature 98.4 F Pulse Rate 68 Respiratory Rate 18 Blood Pressure 110/64 Pulse Oximetry 98 Oxygen Delivery Room Air Room Air 01/27/25 22:00 01/28/25 05:23 Temperature 97.2 F L 98.0 F Pulse Rate 76 76 Respiratory Rate 18 18 Blood Pressure 102/65 120/69 Pulse Oximetry 97 98 Oxygen Delivery Intake/Output Intake/Output: Intake & Output 01/25/25 01/26/25 01/27/25 01/28/25 23:59 23:59 23:59 23:59 Intake Total 1460 3700 5952.1 970.8 Balance 1460 3700 5952.1 970.8 Meds/Results Medications: Active Medications Generic Name Dose Route Start Last Admin Trade Name Freq PRN Reason Stop Dose Admin Hydromorphone HCl 0.5 mg 01/26/25 02:47 01/28/25 04:32 Hydromorphone Hcl Inj (*Crx) 1 Mg/Ml Syr IV PUSH 0.5 mg Q3H PRN Administration Pain Rated 7-10 Lactated Ringer's 1,000 mls @ 125 mls/hr 01/26/25 12:30 01/28/25 04:29 Lr - Lactated Ringers Iv IV CONT 125 mls/hr .Q8H PURA Administration Ibuprofen 600 mg 01/25/25 11:45 01/27/25 17:17 Ibuprofen 600 Mg Tablet PO 600 mg Q6H PRN Administration Cramping Ondansetron HCl 4 mg 01/26/25 10:24 01/26/25 16:49 Ondansetron Inj 4 Mg/2 Ml Vial IV PUSH 4 mg Q4H PRN Administration Nausea And Vomiting Radiology Results: ITS Impressions Abdomen/Pelvis CT 01/25/25 06:59 IMPRESSION: 1. Mild intrahepatic and extrahepatic biliary duct dilatation and gallbladder distention. Consider MRCP. Abdomen Ultrasound 01/25/25 10:13 IMPRESSION: 1. Cholelithiasis with mildly distended gallbladder, and biliary ductal dilatation. Cholecystitis/choledocholithiasis is not excluded. 2. Exam somewhat limited as above. MRCP 01/25/25 11:31 IMPRESSION: 1. Cholelithiasis/choledocholithiasis with 2 mm currently nonobstructing gallstone in the midportion of the common bile duct. The mild intra and extra hepatic biliary ductal dilation is also mild dilation the common bile duct could be related to prior prior or intermittent obstruction. Endo Retro Cholangiopancreatogram 01/25/25 17:16 IMPRESSION: Fluoroscopy used during ERCP procedure. Labs Labs: Laboratory Results - last 24 hr 01/27/25 01/28/25 12:09 05:27 WBC 8.8 RBC 3.57 L Hgb 10.2 L Hct 31.3 L MCV 87.7 MCH 28.6 MCHC 32.6 RDW 13.7 Plt Count 165 MPV 10.7 H Immature Gran % (Auto) 0.5 Neut % (Auto) 77.7 H Lymph % (Auto) 9.9 L [place] % (Auto) 9.1 H Eos % (Auto) 2.6 Baso % (Auto) 0.2 Lymph # (Auto) 0.87 L [place] # (Auto) 0.8 H Eos # (Auto) 0.2 Baso # (Auto) 0.0 Abs Immat Gran (auto) 0.04 H Absolute Neuts (auto) 6.8 H Absolute Nucleated RBC 0.000 Nucleated RBC % 0.0 Sodium 137 Potassium 3.1 L Chloride 107 Carbon Dioxide 24 Anion Gap 6 BUN 7 Creatinine 0.57 L Estim Creat Clear Calc 112 Estimated GFR > 60 Glucose 89 Calcium 8.0 L Magnesium 2.0 Total Bilirubin 1.5 H 1.4 H Direct Bilirubin 0.0 AST 117 H 110 H ALT 266 H 219 H Alkaline Phosphatase 109 105 Total Protein 6.1 L 5.7 L Albumin 3.6 3.2 L Quality VTE Prophylaxis VTE prophylaxis: mechanical ordered
[2025-01-28] MEDS: IBUPROFEN 600 MG TABLET PO (09:08)
[2025-01-28 11:44] LABS: Lipase 75 U/L (23-300)
--- NOTE | 2025-01-28 11:47 | WPDHPUPDATE1 ---
History and Physical Update Update Date/Time: 01/28/25 11:47 History and Physical has been reviewed, including an updated exam of the patient. There are NO changes in the patient's condition. Risks, benefits, and alternatives have been discussed and questions answered. Patient agrees to proceed with procedure.
[2025-01-28] MEDS: ACETAMINOPHEN 500 MG TABLET 1000 MG PO (14:52)
[2025-01-28] MEDS: KETOROLAC 15 MG/ML VIAL (*BKC) IV PUSH (14:53)
--- NOTE | 2025-01-28 15:30 | WPDANESEPPF ---
Anes - Initial Pre Proc Eval Procedure: Operation Date: 01/28/25 15:00 Proposed Procedures p Laparoscopic Cholecystectomy - Gricelda Cueva MD Date/Time: 01/28/25 15:30 Surgeon: Caio Perez MD Pre Op Diagnosis: Elevated liver enzymes Patient Data Age: 44 Gender: F Height: 1.65 m Weight: 83.2 kg Last Vital Signs Temp 37.0 C 01/28/25 13:47 Pulse 78 01/28/25 13:47 Resp 16 01/28/25 13:47 BP 117/69 01/28/25 13:47 Pulse Ox 99 01/28/25 13:47 O2 Del Method Room Air 01/28/25 13:47 O2 Flow Rate 2 01/25/25 16:25 Allergies Allergy/AdvReac Type Severity Reaction Status Date / Time No Known Allergies Allergy Mild Verified 01/25/25 15:17 Home Medications ?Medication ?Instructions ?Recorded ?Confirmed ?Type No Home Medications 06/20/24 01/25/25 History Laboratory Tests 01/28/25 05:27 WBC 8.8 K/mm3 (4.5-10.0) RBC 3.57 L M/mm3 (4.2-5.4) Hgb 10.2 L g/dL (12.0-15.0) Hct 31.3 L % (37.0-47.0) MCV 87.7 fl (80-100) MCH 28.6 pg (26-34) MCHC 32.6 g/dl (32-36) RDW 13.7 % (11.5-14.5) Plt Count 165 k/mm3 (150-375) MPV 10.7 H fl (7.4-10.4) Immature Gran % (Auto) 0.5 % (0-0.5) Neut % (Auto) 77.7 H % (45.5-73.1) Lymph % (Auto) 9.9 L % (18.3-44.2) [place] % (Auto) 9.1 H % (2.6-8.5) Eos % (Auto) 2.6 % (0-4.4) Baso % (Auto) 0.2 % (0.2-1.2) Lymph # (Auto) 0.87 L K/mm3 (0.9-3.2) [place] # (Auto) 0.8 H K/mm3 (0.1-0.6) Eos # (Auto) 0.2 K/mm3 (0-0.3) Baso # (Auto) 0.0 K/mm3 (0.0-0.1) Abs Immat Gran (auto) 0.04 H K/mm3 (0.00-0.031) Absolute Neuts (auto) 6.8 H K/mm3 (1.3-6.7) Absolute Nucleated RBC 0.000 K/mm3 (0.0-0.012) Nucleated RBC % 0.0 % (0.0-0.2) Sodium 137 mmol/L (137-145) Potassium 3.1 L mmol/L (3.4-5.0) Chloride 107 mmol/L (98-107) Carbon Dioxide 24 mmol/L (22-30) Anion Gap 6 mmol/L (4-12) BUN 7 mg/dL (7-17) Creatinine 0.57 L mg/dL (0.7-1.0) Estim Creat Clear Calc 112 ml/min Estimated GFR > 60 (59 - ) Glucose 89 mg/dL (65-110) Calcium 8.0 L mg/dL (8.4-10.2) Magnesium 2.0 mg/dL (1.6-2.3) Total Bilirubin 1.4 H mg/dL (0.2-1.3) Direct Bilirubin 0.0 mg/dL (0-0.3) AST 110 H U/L (14-36) ALT 219 H U/L (6-35) Alkaline Phosphatase 105 U/L (38-126) Total Protein 5.7 L g/dL (6.3-8.2) Albumin 3.2 L g/dL (3.5-5.1) Lipase 75 U/L (23-300) Patient hx anesthesia problems: none Family hx anesthesia problems: none Results Review: All pre-operative results and documents have been reviewed as part of the pre-operative evaluation. [facility] Past Medical History Medical History (Updated 01/26/25 @ 14:57 by Aman Hirsch MD) Upper abdominal pain Post-ERCP acute pancreatitis Encounter to establish care Family History Family History Father Parkinson disease Sibling Hypertension Mother Alzheimer dementia Social History Social History Smoking status: Never smoker Second hand tobacco smoke exposure: Yes Alcohol intake: current Drinks per week: 1 Substance use: current Substance use type: marijuana Other substance usage details: 1xper mo Do You Feel Safe in your Home?: Yes Lack of Transportation: No Lack of Food: Never True Current Housing: I Have Housing Concerned About Future Housing: No Difficulty Paying Gas/Electric Bills: No Difficulty Paying for Meds: No Currently Unemployed: No Education: Associate Degree Difficulty w/ Childcare or Family Care: No Living arrangements: with family Occupation/Education: occupation Gender identity (if verbalized by the patient): Female Spiritual care concerns: No Agree to blood products: Yes Anes - Eval Final PreProcedure Day of Procedure 01/28/25 15:30 Patient weight: obese Heart: regular rate and rhythm Lungs: clear to auscultation Airway: Mallampati scale class II Neurological: alert and oriented Last oral intake: >/= 8 hours ASA classification: II Emergent: no Anesthetic plan: proceed Anesthesia type and monitoring: general ETT and standard monitoring Results Review: All pre-operative results and documents have been reviewed as part of the pre-operative evaluation. Informed Consent: The patient's anesthetic plan and its attendant risks and benefits were discussed with the patient/family/POA. Questions were solicited and answers provided to the satisfaction of the patient/family/POA.
[2025-01-28] MEDS: ceFAZolin 2 GM in SODIUM CHLORIDE 0.9% IV 50 ML 100 ML IVPB (15:42)
[2025-01-28] MEDS: BUPIVACAINE/EPINEPHRINE 0.5% 50 ML VIAL 30 ML INFILTRATE (16:05)
--- NOTE | 2025-01-28 16:12 | S_PTH ---
PATIENT: Vonda Rosario LOC: [id number] U#:[id number] AGE/SX: 44/F ROOM: 348 RE01/25/[address]: David Aguilar PA-C : 1980 BED: 01 DIS: 01/29/2025 SPEC #: [id number] RECD: 01/29/25 07:29 STATUS: ZULEYMA REBerna #: [id number] AMY: 01/28/25 16:[address]: Gricelda Cueva DEPT: [facility] Surgical RECD BY: Dakota Sheppard ENTERED: 01/29/25 07:29 SP TYPE: Surgical OTHR DR: MD Comfort Clayton APRN Edmund R. Bruning, PA-C Edmundo A. Rodriguez-Frias, MD Tissues: A - Gallbladder Procedures: Hematoxylin and Eosin Stain Gross and Microscopic Level 3
[2025-01-28] MEDS: LACTATED RINGERS 1,000 ML 30 ML IV CONT (16:32)
--- NOTE | 2025-01-28 16:32 | P.OP_ITS ---
Procedure Note - Detailed Date of Procedure 01/28/25 Pre-op Diagnosis cholecystitis, choledocholithiasis Post-op Diagnosis Same Procedure Performed Laparoscopic cholecystectomy Surgeon Gricelda Cueva MD Head Athletic Trainer/Strength Coach Morales Anesthesia General and Local Indications 44-year-old female presenting with cholecystitis, choledocholithiasis. Patient had ERCP with subsequent stone removal. She is now set up for interval cholecystectomy. Findings Moderate cholecystitis, cholelithiasis Description of Procedure The patient was taken to the operating room placed in the supine position. After adequate induction of general anesthesia, the patient was prepped and draped in normal sterile fashion. A time-out was then performed to verify the patient's identity as well as the procedure being performed. I then made a 5 mm incision in the infraumbilical region. Through this, a Veress needle was placed into the peritoneal cavity and CO2 gas was then insufflated. After adequate pneumoperitoneum was achieved, the Veress needle was removed and a 5 mm optiview trocar was placed through this incision under direct visualization. I then placed the laparoscope through this trocar site and under direct visualization placed a further 12 mm subxiphoid port as well as 2 additional 5 mm ports in the right upper abdomen. The gallbladder was then identified and was noted to be moderately inflamed, distended, and full of gallstones. I was able to place a grasper at the dome of the gallbladder and this was retracted anterior and cephalad up over the liver. A 2nd retractor was then placed at the infundibulum and retracted laterally, this allowed visualization of the triangle of [place]. I then was able to visualize the cystic duct in its entirety from its proximal insertion into the gallbladder, to its distal junction with the common hepatic/common bile duct junction. At this point, I carefully skeletonized the proximal cystic duct with the [place] dissector. I then clipped and transected the proximal cystic duct. Next I visualized the cystic artery. Again the artery was skeletonized, clipped, and transected. I then used the Bovie cautery to take down the peritoneal attachments of the gallbladder off the liver bed. This was somewhat difficult given the amount of inflammation in the posterior space. Once the gallbladder specimen was completely detached, an endo-pouch was placed through the 12 mm port site. I then placed the gallbladder specimen into the Endo pouch and removed the endo-pouch from the 12 mm port site. The specimen will now be sent to pathology for further review. I then copiously irrigated the right upper quadrant. Some mild oozing was noted in the liver bed and this was controlled with the bovie cautery. I then placed some hemostatic powder in the liver bed. Hemostasis was noted in the liver bed, the clips were noted to be in good position on both the cystic duct stump and the cystic artery stump. No other pathology was noted in the right upper quadrant. I then moved the laparoscope to the subxiphoid port. No iatrogenic injury or other pathology was noted in the lower abdomen. I then closed the 12 mm trocar site under direct visualization using the [place] cone and 0 Vicryl suture. At this point, the abdomen was desufflated and all ports removed. All port sites were then closed with 4.O Monocryl subcuticular sutures. Dermabond was placed on each incision. The patient tolerated the procedure well, was extubated in the operating room postoperative and will be transferred to the recovery room in stable condition Estimated Blood Loss 20 Drains No Packing No Pathology Yes Complications No immediate complications Condition Stable Disposition PACU [facility] Billing Surgery - Charge Forward: Surgery Billing
[2025-01-28] MEDS: ONDANSETRON INJ 4 MG/2 ML VIAL IV PUSH (16:42)
[2025-01-28] MEDS: fentaNYL CITRATE INJ (*CRX) 100 MCG/2 ML VIAL 25 MCG IV PUSH ×2 (17:21→17:45)
[2025-01-28] MEDS: HYDROcodone/acetaminophen (*CRX) 5-325 MG TABLET 1 TAB PO (21:46)
[2025-01-29] MEDS: IBUPROFEN 600 MG TABLET PO (02:32)
[2025-01-29] MEDS: HYDROmorphone HCL INJ (*CRX) 1 MG/ML SYR 0.5 MG IV PUSH (02:32)
[2025-01-29 05:32] LABS: Hematocrit 33.2 % (37.0-47.0); Hemoglobin 10.7 g/dL (12.0-15.0); Immature Granulocyte Percent A 0.5 % (0-0.5); Lymphocytes Absolute Auto 0.49 K/mm3 (0.9-3.2); Mean Corpuscular HGB Conc 32.2 g/dl (32-36); Mean Corpuscular Hemoglobin 28.5 pg (26-34); Mean Corpuscular Volume 88.5 fl (80-100); Nucleated Red Blood Cells Absolute Auto 0.000 K/mm3 (0.0-0.012); Nucleated Red Blood Cells Perc 0.0 % (0.0-0.2); Platelet Count Result 203 k/mm3 (150-375); Red Blood Count 3.75 M/mm3 (4.2-5.4); White Blood Count 10.9 K/mm3 (4.5-10.0)
[2025-01-29 05:45] LABS: Alanine Aminotransferase 180 U/L (6-35); Albumin Level 3.7 g/dL (3.5-5.1); Alkaline Phosphatase 128 U/L (38-126); Anion Gap 7 mmol/L (4-12); Aspartate Amino Transferase 65 U/L (14-36); Bilirubin,Total 1.5 mg/dL (0.2-1.3); Blood Urea Nitrogen 8 mg/dL (7-17); Calcium 8.4 mg/dL (8.4-10.2); Carbon Dioxide 25 mmol/L (22-30); Chloride 102 mmol/L (98-107); Estimated CRCL calculation 106 ml/min; Estimated Glomerular Filt Rate > 60; Glucose 109 mg/dL (65-110); Magnesium 2.0 mg/dL (1.6-2.3); Potassium 3.2 mmol/L (3.4-5.0); Sodium 134 mmol/L (137-145); Total Protein 6.5 g/dL (6.3-8.2)
[2025-01-29 06:00] VITALS: BP 116/65; PULSE 86; RESP 16; TEMP 36.7; O2SAT 93
--- NOTE | 2025-01-29 07:51 | P.PNAN_ITS ---
Anes - Prog Note Post-Op Date/Time: 01/29/25 07:51 Cardiovascular status: normal Respiratory status: normal Airway patency: baseline Mental status: baseline Post-Op hydration status: normal Vital Signs: Last Vital Signs Temp 36.4 C 01/28/25 22:00 Pulse 108 H 01/28/25 22:00 Resp 16 01/28/25 22:00 BP 131/72 01/28/25 22:00 Pulse Ox 94 01/28/25 22:00 O2 Del Method Room Air 01/28/25 20:00 O2 Flow Rate 8 01/28/25 16:45 Pain Score (VAS): 2 I/O: Intake & Output 01/28/25 01/28/25 01/29/25 15:59 23:59 07:59 Intake Total 1000 300 Balance 1000 300 Laboratory Tests 01/29/25 05:12 01/29/25 05:12 01/28/25 01/29/25 05:27 05:12 WBC 10.9 H RBC 3.75 L Hgb 10.7 L Hct 33.2 L MCV 88.5 MCH 28.5 MCHC 32.2 RDW 13.6 Plt Count 203 MPV 10.7 H Immature Gran % (Auto) 0.5 Neut % (Auto) 87.2 H Lymph % (Auto) 4.5 L [place] % (Auto) 7.3 Eos % (Auto) 0.3 Baso % (Auto) 0.2 Lymph # (Auto) 0.49 L [place] # (Auto) 0.8 H Eos # (Auto) 0.0 Baso # (Auto) 0.0 Abs Immat Gran (auto) 0.05 H Absolute Neuts (auto) 9.5 H Absolute Nucleated RBC 0.000 Nucleated RBC % 0.0 Sodium 137 134 L Potassium 3.1 L 3.2 L Chloride 107 102 Carbon Dioxide 24 25 Anion Gap 6 7 BUN 7 8 Creatinine 0.57 L 0.61 L Estim Creat Clear Calc 112 106 Estimated GFR > 60 > 60 Glucose 89 109 Calcium 8.0 L 8.4 Magnesium 2.0 2.0 Total Bilirubin 1.4 H 1.5 H Direct Bilirubin 0.0 AST 110 H 65 H ALT 219 H 180 H Alkaline Phosphatase 105 128 H Total Protein 5.7 L 6.5 Albumin 3.2 L 3.7 Lipase 75 Post-procedural complaints: none Patient Feedback: Patient satisfied with anesthetic care.
--- NOTE | 2025-01-29 08:27 | P.PNGS_ITS ---
Progress Note: A&P Assessment and Plan (1) Choledocholithiasis: Code(s): K80.50 - Calculus of bile duct without cholangitis or cholecystitis without obstruction Status: Acute Assessment and Plan: POD #1 s/p lap coleman. LFTs continue to trend towards normal. Tolerated FLD, advanced to regular diet this am. States her pain has been controlled over night with PO pain medication and will continue on only po meds. Clinically doing well and okay to discharge from general surgery standpoint. Follow up in clinic with Dr. Cueva in 2 weeks for postop visit. Please see attending attestation for further plan and updates (2) Post-ERCP acute pancreatitis: Code(s): K91.89 - Other postprocedural complications and disorders of digestive system; K85.90 - Acute pancreatitis without necrosis or infection, unspecified Status: Acute Assessment and Plan: lipase significantly improved, exam much improved Subjective Subjective Date/Time Seen: 01/29/25 08:27 Interval history: NAEON. S/p lap coleman 01/28. Doing well postop. Incisions CDI. Reports normal postop pain. Last dose of IV pain meds last night. Patient tolerated FLD, advanced to regular this am. LFTs continue to trend down. Patient states she feels well and is ready to discharge home. Review of Systems Review of Systems: All systems reviewed & are unremarkable except as noted in HPI and below Exam Const: General: cooperative, comfortable and no acute distress Resp: Auscultation: clear to auscultation bilaterally Cardio: Rate: regular rate Rhythm: regular rhythm GI: Inspection: normal to inspection and distended GI Palp: Yes abdominal tenderness, Yes Soft to palpation, Yes Tenderness to palpation present (GI), No Guarding due to palpation present (GI) and No Rigid due to palpation Other: aTTP, incisions CDI Objective Data Vital Signs Vital Signs: Vital Signs - 24 hr 01/28/25 13:47 01/28/25 16:32 01/28/25 16:45 Temperature 98.6 F 97.0 F L Pulse Rate 78 110 H 92 Respiratory Rate 16 18 16 Blood Pressure 117/69 134/78 133/83 Pulse Oximetry 99 95 100 Oxygen Delivery Room Air Simple Face Mask Simple Face Mask Oxygen Flow Rate 8 8 01/28/25 16:56 01/28/25 17:00 01/28/25 17:15 Temperature Pulse Rate 90 105 H Respiratory Rate 16 16 Blood Pressure 128/81 126/71 Pulse Oximetry 98 96 96 Oxygen Delivery Room Air Room Air Room Air Oxygen Flow Rate 01/28/25 17:30 01/28/25 17:45 01/28/25 17:53 Temperature 97.0 F L Pulse Rate 96 89 80 Respiratory Rate 16 16 16 Blood Pressure 128/68 128/77 125/77 Pulse Oximetry 96 95 94 Oxygen Delivery Room Air Room Air Room Air Oxygen Flow Rate 01/28/25 18:33 01/28/25 20:00 01/28/25 22:00 Temperature 97.6 F 97.6 F Pulse Rate 77 108 H Respiratory Rate 16 16 Blood Pressure 116/65 131/72 Pulse Oximetry 96 94 Oxygen Delivery Room Air Oxygen Flow Rate 01/29/25 06:00 Temperature 98.1 F Pulse Rate 86 Respiratory Rate 16 Blood Pressure 116/65 Pulse Oximetry 93 Oxygen Delivery Oxygen Flow Rate Intake/Output Intake/Output: Intake & Output 01/26/25 01/27/25 01/28/25 01/29/25 23:59 23:59 23:59 23:59 Intake Total 3700 5952.1 2270.8 1050 Balance 3700 5952.1 2270.8 1050 Meds/Results Medications: Active Medications Generic Name Dose Route Start Last Admin Trade Name Freq PRN Reason Stop Dose Admin Hydrocodone Bitart/Acetaminophen 1 tab 01/28/25 17:58 01/28/25 21:46 Hydrocodone/Acetaminophen (*Crx) 5-325 Mg Tablet PO 1 tab Q4H PRN Administration Pain Rated 4-6 Hydromorphone HCl 0.5 mg 01/26/25 02:47 01/29/25 02:32 Hydromorphone Hcl Inj (*Crx) 1 Mg/Ml Syr IV PUSH 0.5 mg Q3H PRN Administration Pain Rated 7-10 Ibuprofen 600 mg 01/25/25 11:45 01/29/25 02:32 Ibuprofen 600 Mg Tablet PO 600 mg Q6H PRN Administration Cramping Ondansetron HCl 4 mg 01/26/25 10:24 01/26/25 16:49 Ondansetron Inj 4 Mg/2 Ml Vial IV PUSH 4 mg Q4H PRN Administration Nausea And Vomiting Radiology Results: ITS Impressions Abdomen/Pelvis CT 01/25/25 06:59 IMPRESSION: 1. Mild intrahepatic and extrahepatic biliary duct dilatation and gallbladder distention. Consider MRCP. Abdomen Ultrasound 01/25/25 10:13 IMPRESSION: 1. Cholelithiasis with mildly distended gallbladder, and biliary ductal dilatation. Cholecystitis/choledocholithiasis is not excluded. 2. Exam somewhat limited as above. MRCP 01/25/25 11:31 IMPRESSION: 1. Cholelithiasis/choledocholithiasis with 2 mm currently nonobstructing gallstone in the midportion of the common bile duct. The mild intra and extra hepatic biliary ductal dilation is also mild dilation the common bile duct could be related to prior prior or intermittent obstruction. Endo Retro Cholangiopancreatogram 01/25/25 17:16 IMPRESSION: Fluoroscopy used during ERCP procedure. Labs Labs: Laboratory Results - last 24 hr 01/28/25 01/29/25 05:27 05:12 WBC 10.9 H RBC 3.75 L Hgb 10.7 L Hct 33.2 L MCV 88.5 MCH 28.5 MCHC 32.2 RDW 13.6 Plt Count 203 MPV 10.7 H Immature Gran % (Auto) 0.5 Neut % (Auto) 87.2 H Lymph % (Auto) 4.5 L Payne % (Auto) 7.3 Eos % (Auto) 0.3 Baso % (Auto) 0.2 Lymph # (Auto) 0.49 L Payne # (Auto) 0.8 H Eos # (Auto) 0.0 Baso # (Auto) 0.0 Abs Immat Gran (auto) 0.05 H Absolute Neuts (auto) 9.5 H Absolute Nucleated RBC 0.000 Nucleated RBC % 0.0 Sodium 137 134 L Potassium 3.1 L 3.2 L Chloride 107 102 Carbon Dioxide 24 25 Anion Gap 6 7 BUN 7 8 Creatinine 0.57 L 0.61 L Estim Creat Clear Calc 112 106 Estimated GFR > 60 > 60 Glucose 89 109 Calcium 8.0 L 8.4 Magnesium 2.0 2.0 Total Bilirubin 1.4 H 1.5 H Direct Bilirubin 0.0 AST 110 H 65 H ALT 219 H 180 H Alkaline Phosphatase 105 128 H Total Protein 5.7 L 6.5 Albumin 3.2 L 3.7 Lipase 75
[2025-01-29] MEDS: HYDROcodone/acetaminophen (*CRX) 5-325 MG TABLET 1 TAB PO ×2 (08:29→12:51)
[2025-01-29 10:09] LABS: ANA by IFA Rfx Titer/Pattern Positive (.)
--- NOTE | 2025-01-29 10:59 | P.DS_ITS ---
DS: Admitting Diagnosis Discharge Date 01/29/2025 Admitting Diagnosis Choledocholithiasis DS: Discharge Diagnosis Discharge Diagnosis (1) Abnormal finding of biliary tract: Code(s): R19.8 - Other specified symptoms and signs involving the digestive system and abdomen Status: Acute Assessment and Plan: * Abdomen/pelvis CT: Mild intrahepatic and extrahepatic biliary duct dilation and gallbladder distension, consider MRCP * Abdomen ultrasound: Cholelithiasis with mildly distended gallbladder, and biliary duct dilation, cholecystitis/choledocholithiasis not excluded * AST/ALT: 475/492, normal alk phos, total bili 6.1 * P.r.n. pain control * Gentle IV fluid resuscitation * Diet: NPO * MRCP: Cholelithiasis/choledocholithiasis with 2 mm currently nonobstructing gallstone in the midportion of the common bile duct. The mild intra and extra hepatic biliary ductal dilation is also mild dilation the common bile duct could be related to prior prior or intermittent obstruction. * Monitor vital signs, I and O's, check stool output * Monitor serum electrolytes and CBC * GI consulted -appreciate further recommendations * ERCP on 01/25: Stone removal with sphincterotomy (2) Choledocholithiasis: Code(s): K80.50 - Calculus of bile duct without cholangitis or cholecystitis without obstruction Status: Acute Assessment and Plan: * See problem 1 * General surgery consultation * Plan for interval cholecystectomy today * NPO * To be reassessed by General surgery - depends on OR availability today (3) Elevated liver enzymes: Code(s): R74.8 - Abnormal levels of other serum enzymes Status: Acute Assessment and Plan: * See problem 1 (4) Pancreatitis: Code(s): K85.90 - Acute pancreatitis without necrosis or infection, unspecified Status: Acute Assessment and Plan: * acute, likely secondary to post ERCP * IVF: Lactated Ringer's 125 mL/hour * trend lipase, currently: 8148 * trend LFTs. * pain control with Dilaudid 0.5 mg q.3 hours * Zofran prn for nausea * GI consulted, awaiting further recommendations * Clear liquid diet * Lipase down trendin -> 1109 * NPO for possible interval cholecystectomy DS: Summary Hospital Course Reason for hospitalization: Abdominal pain Hospital Course: Per HPI: Vonda Rosario is a 44 year old female with a past medical history of Gallbladder disease who presents to the hospital with RUQ abdominal pain for the past 3 days. She states this pain is intermittent and radiates to her back. States that after eating food it tends to get worse and a heating pad tends to alleviate the symptoms. Denies any chest pain, shortness of breath, n/v/d, fevers or chills. Denies any urinary/bowel changes. She states that she has a long history of ?gallbladder issues and will develop symptoms similar to which she is presenting with today but that it usually subsides. She also states that she noticed her skin turning yellow, which prompted her to come to the emergency department. At time of exam, patient denied any abdominal pain or nausea. No family history of colorectal cancer or IBD. Denies any recent travel, illnesses or illicit drug use. ED workup: 130/88, 100% on room air, 18 respiratory rate, 89 pulse rate WBC 6.0, H&H normal, PLT 222, Na 139, K 3.4, BUN 10, creatinine 0.74 total bilirubin 7, AST 476, ALT 503, alkaline phosphatase 104, lipase 58 UA: 3+ bilirubin, 1+ bacteria, 1+ leukocyte esterase otherwise unremarkable Abdomen/pelvis CT: Mild intrahepatic and extrahepatic biliary duct dilation and gallbladder distension, consider MRCP Abdomen ultrasound: Cholelithiasis with mildly distended gallbladder, and biliary duct dilation, cholecystitis/choledocholithiasis not excluded Hospital course: GI consulted regarding elevated liver enzymes in concern for abnormal finding of the biliary tract. GI recommends trending LFTs and planning for ERCP, recommend that the patient will likely need to be referred to surgery for possible cholecystectomy. ERCP was performed, stone was removed and the next recommendation was for cholecystectomy. Surgery was consulted for regarding possible interval cholecystectomy, however she did develop post ERCP pancreatitis as indicated by large spike of lipase enzyme in the 8 thousands and acute upper abdominal discomfort. She was given p.r.n. pain control and IV fluids and was continually monitored over the weekend. Lipase eventually decreased to within normal limits and surgery cleared patient to undergo cholecystectomy. This was performed on 01/28 without any complications. She was reassessed on 01/29 and had some continued pain but otherwise feels okay for discharge at this point. General surgery was able to reassess the patient and cleared the patient for discharge. She has been given proper postop discharge instructions as well as continued p.r.n. pain control with [place]. Patient is otherwise hemodynamically stable without fever or gross leukocytosis. Patient stable for discharge at this time and has been cleared by surgery/GI. Plan for discharge home. Status at Discharge Functional status at discharge: independent ambulation Overall status at discharge: patient is back to baseline Time Spent with Patient Time attestation: Total time spent providing and/or coordinating discharge services: 30 Exam Narrative: Gen -comfortable, well appearing female in no acute respiratory distress who is nontoxic-appearing lying semi recumbent in bed HEENT - normocephalic. Atraumatic. Pupils equal round and reactive. Extraocular motions intact. Sclera clear and anicteric. Nares patent. Moist mucous membranes. No facial asymmetry. Neck - neck was supple. No dominant adenopathy, thyromegaly or masses. 2+ carotid upstrokes without bruits. Chest - lungs are clear to auscultation bilaterally. No wheezes or crackles. CV - heart was regular rate and rhythm. S1-S2. No murmurs gallops or rubs. Abd -tender to palpation in the right upper quadrant, abdomen was soft. Nondistended. Positive bowel sounds. No organomegaly or masses. Ext - no clubbing, cyanosis or edema. 2+ DP pulses bilaterally. Neuro - patient is alert and oriented x4. Strength is 5/5 in both upper and lower extremities. Cranial nerves 2-12 are intact. Speech is clear. Psych - normal mood and affect. Patient is pleasant and cooperative. Skin -jaundiced, warm and dry. No rashes noted. DS: Data Data Completed and Pending Pending studies at discharge: Pending at discharge 01/28/25 16:12 Surgical [PTH] Routine Labs on day of discharge: Labs from last 24 hours 01/29/25 01/28/25 01/25/25 05:12 05:27 09:57 WBC 10.9 H RBC 3.75 L Hgb 10.7 L Hct 33.2 L MCV 88.5 MCH 28.5 MCHC 32.2 RDW 13.6 Plt Count 203 MPV 10.7 H Immature Gran % (Auto) 0.5 Neut % (Auto) 87.2 H Lymph % (Auto) 4.5 L Larue % (Auto) 7.3 Eos % (Auto) 0.3 Baso % (Auto) 0.2 Lymph # (Auto) 0.49 L Larue # (Auto) 0.8 H Eos # (Auto) 0.0 Baso # (Auto) 0.0 Abs Immat Gran (auto) 0.05 H Absolute Neuts (auto) 9.5 H Absolute Nucleated RBC 0.000 Nucleated RBC % 0.0 Sodium 134 L 137 Potassium 3.2 L 3.1 L Chloride 102 107 Carbon Dioxide 25 24 Anion Gap 7 6 BUN 8 7 Creatinine 0.61 L 0.57 L Estim Creat Clear Calc 106 112 Estimated GFR > 60 > 60 Glucose 109 89 Calcium 8.4 8.0 L Magnesium 2.0 2.0 Total Bilirubin 1.5 H 1.4 H Direct Bilirubin 0.0 AST 65 H 110 H ALT 180 H 219 H Alkaline Phosphatase 128 H 105 Total Protein 6.5 5.7 L Albumin 3.7 3.2 L Lipase 75 JAXON Screen Positive A JAXON Homogeneous Pattern 1:640 H JAXON Speckled Pattern 1:320 H JAXON Comment Comment Discharge Plan Discharge Attending physician on discharge: Caio Perez Consulting providers: David Aguilar; Aman Hirsch; Gricelda Cueva Discharging Clinician: David Aguilar Anticipated Discharge Date/Time: 01/29/25 10:58 Patient Disposition: Home Activity: may shower and as tolerated Diet: as tolerated Wound Care Instructions: incision open to air Discharge Instructions: DISCHARGE INSTRUCTION SHEET FOR HERNIA, GALLBLADDER AND APPENDIX SURGERIES DR. CUEVA PATIENT TO TAKE HOME 1. May shower in 24 hours, no soaking in bath x 2weeks. 2. Call office for: * Wound increasingly painful or bleeding * Vomiting * Fever of greater than 101 degrees 3. If no bowel movement for three days, take 1 oz. (30 ml) Milk of Magnesia or MiraLax 17g 1 to 2 times daily. 4. No heavy lifting > 10-15 pounds x 6 weeks for hernia repairs and 2 weeks for laparoscopic cholecystectomy or appendectomy. 5. No driving for 3 days or while taking narcotic pain medications. 6. Ice to surgical site for 48 hours (30 min on, then 30 min off). 7. Up walking 10-30 minutes three times per day. 8. Resume previous home medications. 9. Follow-up 10-14 days in office for wound check or as previously scheduled. ([phone]) 10. Oral pain medications prescription to be sent to pharmacy. Take Tylenol 500mg every 6 hours and Ibuprofen 600mg every 6 hours for the first 2 days, then as needed. 11. NUTRITION: Start out by drinking fluids and increase your diet as tolerated. If you experience nausea, try dry toast, crackers, and 7-UP. If nausea or vomiting persists, contact your surgeon?s office. 12. Gallbladders-Low Fat Diet for 2 weeks (send care note of low fat diet) 13. Inguinal Hernias-wear scrotal support for 48 hours 14. Abdominal Hernias-if sent home with abdominal binder, wear for the first 2 weeks (may remove to shower or at night to sleep). Revised 03/2020 Patient Instructions: Antibiotic Form, Hydrocodone/Acetaminophen (By mouth) Patient Language: Yi Stand Alone Forms: General Discharge Information Follow-up/Referrals: Gricelda Cueva MD [Physician, General Surgery] - 2 Weeks Discharge Medications: New hydrocodone-acetaminophen 5-325 mg tablet 1 tablet PO Q6H PRN (Reason: pain) Qty: 20 0RF No Action No Home Medications Date of admission: 01/25/25 01:29 Primary Care Provider: Comfort Jaquez Admitting Provider: Caio Perez Attending physician on admission: Caio Perez Condition: Stable Quality VTE Prophylaxis VTE prophylaxis: mechanical ordered
== END 2025-01-29 13:36 | disposition home or self-care (01) | DRG 417 ==
LOC: ANHED 01-25 01:33 → ANH3MEDSUR 01-25 02:10 → ANH3MED 01-25 02:28
PROVIDERS: Internal Medicine Gastroenterology; Nurse Practitioner; Nurse Practitioner Family; Surgery; Admitting Provider Family Medicine; Emergency Provider Emergency Medicine; PCP Nurse Practitioner Family; Visit Provider Physician Assistant
PROC: 0FC98ZZ Extirpation of Matter from Common Bile Duct, Via Natural or Artificial Opening Endoscopic (ICD-10-PCS; CPT 43260; principal; 2025-01-25 15:30)
PROC: 0FT44ZZ Resection of Gallbladder, Percutaneous Endoscopic Approach (ICD-10-PCS; CPT 47562; principal; 2025-01-28 15:00)
DX: K80.70 Calculus of gallbladder and bile duct without cholecystitis without obstruction (principal); K85.90 Acute pancreatitis without necrosis or infection, unspecified; K91.89 Other postprocedural complications and disorders of digestive system; R74.8 Abnormal levels of other serum enzymes
CPT/HCPCS: 36415; 74177; 74183; 74329; 76376; 76705; 80053; 80074; 80076; 81001; 81025; 82248; 82390; 82728; 82977; 83540; 83550; 83690; 83735; 85025; 85610; 86015; 86038; 86381; 87086; 88304; 99285; J0690; A9270; A9577; J1171; J1885; J2003; J2250; J2405; J2704; J3010; J7030; J7120; Q9966; Q9967

== ENCOUNTER 2025-02-15 10:52 | Emergency (ER) | payer BC, SELFPAY ==
--- NOTE | ~2025-02-15 | CT_ITS ---
EXAMINATION: CT abdomen pelvis w con DATE: 02/15/2025 12:17 INDICATION: Right upper quadrant pain status post cholecystectomy. TECHNIQUE: Computed tomography (CT) of the abdomen and pelvis was performed with 100 cc Omnipaque 350 intravenous contrast. The dose-length product was 420.57 mGy-cm. Automated exposure control and iterative reconstruction technique were employed. COMPARISON: CT dated 01/25/2025. FINDINGS: Status post cholecystectomy with fluid in the gallbladder fossa and surrounding tissues, consistent with postoperative change. Fatty infiltration of the liver. Lung bases unremarkable. Heart size normal. The spleen is unremarkable. There are accessory splenules. The pancreas, adrenal glands and right kidney are unremarkable. There is mild prominence of the ureters. There is a 3 cm left adnexal cyst, most likely ovarian. Colonic diverticulosis without evidence for diverticulitis. No significant vascular abnormality. No lymphadenopathy. No acute osseous abnormality. IMPRESSION: 1. Status post cholecystectomy with fluid in the gallbladder fossa and surrounding tissues, most consistent with postoperative change. 2: Left adnexal cyst measuring 3 cm, likely ovarian. Reviewed, dictated and finalized at location I. 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 Status post cholecystectomy with fluid in the gallbladder fossa and surround ing tissues, most consistent with postoperative change. 2: Left adnexal cyst measuring 3 cm, likely ovarian.
--- OUTSIDE RECORDS SUMMARY | 2025-02-15 10:54 | XMS_ITS ---
Author Organization Unknown ENCOUNTERS Encounter Performer Location Date Diagnosis Diagnosis Status Pre Admit [facility] [address] [place] [address] [id number] Inpatient David [facility] [address] [place] [address] [id number] TORI Pre Admit [facility] [address] [place] [address] [id number] Emergency [facility] [address] [place] [address] [id number] PAT *Note: Encounters from your own facility or health system may be excluded. Allergies, Adverse Reactions, Alerts Allergen Type Severity Identification Date Medications Name Date Quantity Days Supplied GPI Number
[2025-02-15 11:15] VITALS: BP 131/73; PULSE 80; RESP 16; TEMP 36.4; O2SAT 100
[2025-02-15 11:32] LABS: BEDSIDEPREGUCG Negative (Negative)
[2025-02-15 11:35] LABS: Hematocrit 40.9 % (37.0-47.0); Hemoglobin 12.9 g/dL (12.0-15.0); Immature Granulocyte Percent A 0.7 % (0-0.5); Lymphocytes Absolute Auto 1.68 K/mm3 (0.9-3.2); Mean Corpuscular HGB Conc 31.5 g/dl (32-36); Mean Corpuscular Hemoglobin 27.7 pg (26-34); Mean Corpuscular Volume 88.0 fl (80-100); Nucleated Red Blood Cells Absolute Auto 0.000 K/mm3 (0.0-0.012); Nucleated Red Blood Cells Perc 0.0 % (0.0-0.2); Platelet Count Result 333 k/mm3 (150-375); Red Blood Count 4.65 M/mm3 (4.2-5.4); White Blood Count 8.2 K/mm3 (4.5-10.0)
--- NOTE | 2025-02-15 11:36 | ED_ITS ---
HPI - Abdominal Pain General Chief Complaint: Abdominal Pain Stated Complaint: abd pain Time Seen by Provider: 02/15/25 11:14 History of Present Illness HPI narrative: Patient is a 44-year-old female who presents to the ER with right upper quadrant abdominal pain. She reports 3 weeks ago she came in with a jaundice and had her gallbladder removed. Patient reports her pain improved shortly after surgery but over the past 2 days it has worsened again. She reports the pain radiates from dull to sharp. Patient reports she took one of her pain pills two days ago and it did not help relieve her symptoms. She denies any recent fevers, urinary symptoms, shortness of breath or chest pain. Related Data Home Medications ?Medication ?Instructions ?Recorded ?Confirmed ?Last Taken ?Type No Home Medications 06/20/24 02/13/25 U nknown History Allergies Allergy/AdvReac Type Severity Reaction Status Date / Time No Known Allergies Allergy Mild Verified 02/15/25 11:19 Review of Systems 2 Review of Systems: All systems reviewed & are unremarkable except as noted in HPI and below PMFSH Past Medical History Medical History Upper abdominal pain Post-ERCP acute pancreatitis Encounter to establish care Surgical History Surgical History Hx laparoscopic cholecystectomy Laparoscopic cholecystectomy 01/28/2025 Family History Family History Father Parkinson disease Sibling Hypertension Mother Alzheimer dementia Social History Social History Smoking status: Never smoker Second hand tobacco smoke exposure: Yes Alcohol intake: current Drinks per week: 1 Substance use: current Substance use type: marijuana Other substance usage details: 1xper mo Lack of Transportation: No Lack of Food: Never True Current Housing: I Have Housing Concerned About Future Housing: No Difficulty Paying Gas/Electric Bills: No Difficulty Paying for Meds: No Currently Unemployed: No Education: Associate Degree Difficulty w/ Childcare or Family Care: No Living arrangements: with family Occupation/Education: occupation Gender identity (if verbalized by the patient): Female Spiritual care concerns: No Agree to blood products: Yes Exam 2 Narrative: GENERAL: Well appearing, well-nourished, non-toxic, in no acute distress. HEAD: Normocephalic, atraumatic. NECK: Supple. No adenopathy, no masses. RESPIRATORY: Airway patent, respirations nonlabored. Clear to auscultation bilaterally, no rales, rhonchi, wheezing. CARDIOVASCULAR: Regular rate and rhythm without murmurs, rubs, or gallops. Peripheral pulses 2+ and equal bilaterally. ABDOMINAL: Soft, right upper quadrant tenderness, nondistended, no hepatosplenomegaly. Normoactive BS. MUSCULOSKELETAL: Moves all extremities. Strength/ROM intact without gross deformities. SKIN: Warm, dry, normal color. No rashes. NEURO: A&O X3. Speech clear. Cranial nerves II-XII intact. No ataxic movements. PSYCHIATRIC: Appropriate mood and affect. Normal interaction. Course Vital Signs Vital signs: Vital Signs Temperature 36.4 C 02/15/25 11:15 Pulse Rate 80 02/15/25 11:15 Respiratory Rate 16 02/15/25 11:15 Blood Pressure 131/73 02/15/25 11:15 Pulse Oximetry 100 02/15/25 11:15 Oxygen Delivery Room Air 02/15/25 11:15 Temperature 36.4 C 02/15/25 11:15 Pulse Rate 87 02/15/25 12:51 Respiratory Rate 15 02/15/25 12:51 Blood Pressure 106/67 02/15/25 12:51 Pulse Oximetry 99 02/15/25 12:51 Oxygen Delivery Room Air 02/15/25 11:15 MDM - Abdominal Pain MDM Narrative Medical decision making narrative: Patient is a 44-year-old female who presents to the ER with right upper quadrant abdominal pain. She reports 3 weeks ago she came in with a jaundice and had her gallbladder removed. Patient reports her pain improved shortly after surgery but over the past 2 days it has worsened again. She reports the pain radiates from dull to sharp. Patient reports she took one of her pain pills two days ago and it did not help relieve her symptoms. She denies any recent fevers, urinary symptoms, shortness of breath or chest pain. Labs Ordered: CBC, CMP, UA, lipase Imaging Ordered: CT abdomen pelvis Medications Ordered: 1 L normal saline IV bolus, Toradol 15 mg IV Results: Pt's CT scan indicates Status post cholecystectomy with fluid in the gallbladder fossa and surrounding tissues, consistent with postoperative change. Fatty infiltration of the liver. Lung bases unremarkable. Heart size normal. The spleen is unremarkable. There are accessory splenules. The pancreas, adrenal glands and right kidney are unremarkable. There is mild prominence of the ureters. There is a 3 cm left adnexal cyst, most likely ovarian. Colonic diverticulosis without evidence for diverticulitis. No significant vascular abnormality. No lymphadenopathy. No acute osseous abnormality. Diagnosis: Post-surgical pain Patient Education/Shared MDM: Results of lab work and imaging shared with patient. She endorses improvement of symptoms following medication administration. Patient strongly advised to maintain hydration status upon discharge and follow-up with her surgeon as soon as possible for further evaluation. She will be discharged home with a prescription for Ibuprofen 800mg. Strict return precautions provided. Patient verbalized understanding and is in agreement with plan. Vital signs stable at time of discharge. All questions answered. Differential Diagnosis Differential diagnosis: Likely abdominal pain, calculus of kidney, constipation, pancreatitis and small bowel obstruction Lab Data Attestation: I reviewed the patient's lab results. 02/15/25 11:29 02/15/25 11:29 Labs: Lab Results 02/15/25 02/15/25 Range/Units 11:27 11:29 WBC 8.2 (4.5-10.0) K/mm3 RBC 4.65 (4.2-5.4) M/mm3 Hgb 12.9 (12.0-15.0) g/dL Hct 40.9 (37.0-47.0) % MCV 88.0 (80-100) fl MCH 27.7 (26-34) pg MCHC 31.5 L (32-36) g/dl RDW 13.8 (11.5-14.5) % Plt Count 333 D (150-375) k/mm3 MPV 9.9 (7.4-10.4) fl Immature Gran % (Auto) 0.7 H (0-0.5) % Neut % (Auto) 65.3 (45.5-73.1) % Lymph % (Auto) 20.6 (18.3-44.2) % [place] % (Auto) 7.0 (2.6-8.5) % Eos % (Auto) 5.3 H (0-4.4) % Baso % (Auto) 1.1 (0.2-1.2) % Lymph # (Auto) 1.68 (0.9-3.2) K/mm3 [place] # (Auto) 0.6 (0.1-0.6) K/mm3 Eos # (Auto) 0.4 H (0-0.3) K/mm3 Baso # (Auto) 0.1 (0.0-0.1) K/mm3 Abs Immat Gran (auto) 0.06 H (0.00-0.031) K/mm3 Absolute Neuts (auto) 5.3 (1.3-6.7) K/mm3 Absolute Nucleated RBC 0.000 (0.0-0.012) K/mm3 Nucleated RBC % 0.0 (0.0-0.2) % Sodium 138 (137-145) mmol/L Potassium 3.9 (3.4-5.0) mmol/L Chloride 104 (98-107) mmol/L Carbon Dioxide 25 (22-30) mmol/L Anion Gap 9 (4-12) mmol/L BUN 12 (7-17) mg/dL Creatinine 0.72 (0.7-1.0) mg/dL Estim Creat Clear Calc 90 ml/min Estimated GFR > 60 (59 - ) Glucose 98 (65-110) mg/dL Lactic Acid 0.9 (0.7-2.0) mmol/L Calcium 9.4 (8.4-10.2) mg/dL Total Bilirubin 0.8 (0.2-1.3) mg/dL AST 30 (14-36) U/L ALT 26 (6-35) U/L Alkaline Phosphatase 86 (38-126) U/L Total Protein 7.8 (6.3-8.2) g/dL Albumin 4.8 (3.5-5.1) g/dL Lipase 58 (23-300) U/L Urine Color Yellow (Yellow) Urine Appearance Clear (Clear) Urine pH 5.5 (5.0-9.0) Ur Specific [place] 1.007 (1.001-1.035) Urine Protein Negative (Negative) mg/dL Urine Glucose (UA) Negative (Negative) mg/dL Urine Ketones Negative (Negative) mg/dL Ur Blood (Man) Negative (Negative) Urine Nitrate Negative (Negative) Urine Bilirubin Negative (Negative) Urine Urobilinogen 0.2 (<2.0) mg/dL Leukocyte Esterase Rfl Negative (Negative) MARISELA/UL POC Urine HCG, Qual Negative (Negative) Imaging Data Attestation: I personally reviewed and interpreted this imaging study as follows: Radiologist's impression: ITS Impressions Abdomen/Pelvis CT 02/15/25 12:19 IMPRESSION: 1. Status post cholecystectomy with fluid in the gallbladder fossa and surrounding tissues, most consistent with postoperative change. 2: Left adnexal cyst measuring 3 cm, likely ovarian. Discharge Plan Discharge Clinical Impression: H/O abdominal surgery, Upper abdominal pain, Postoperative abdominal pain Patient Disposition: Home Condition: Stable Instructions: Antibiotic Form, Abdominal Pain (ED) Additional Instructions: Please return to the ER with any worsening symptoms. Follow-up with your general surgeon as soon as possible for further evaluation. Take all medications as prescribed, including regularly scheduled medications. You may use Tylenol and/or Ibuprofen for pain control. Patient Language: Tunisian Prescriptions: No Action No Home Medications Follow-up/Referrals: Comfort Jaquez APRN [Primary Care Provider, Internal Medicine] Gricelda Cueva MD [Physician, General Surgery] Stand Alone Forms: Work/School Release IP Time of Disposition: 13:31
[2025-02-15 11:37] LABS: Add Urine Microscopic? NO; Appearance Urine Clear (Clear); Glucose Urine UA Negative (Negative); Leukocyte Esterase Ur Negative LEU/UL (Negative); Nitrate Urine Negative (Negative); Specific Grav Ur 1.007 (1.001-1.035)
[2025-02-15] MEDS: SODIUM CHLORIDE 0.9% IV 1,000 ML 999 ML IV CONT (11:41)
[2025-02-15 11:42] VITALS: BP 124/72; PULSE 93; RESP 15; O2SAT 97
[2025-02-15 11:56] LABS: Alanine Aminotransferase 26 U/L (6-35); Albumin Level 4.8 g/dL (3.5-5.1); Alkaline Phosphatase 86 U/L (38-126); Anion Gap 9 mmol/L (4-12); Aspartate Amino Transferase 30 U/L (14-36); Bilirubin,Total 0.8 mg/dL (0.2-1.3); Blood Urea Nitrogen 12 mg/dL (7-17); Calcium 9.4 mg/dL (8.4-10.2); Carbon Dioxide 25 mmol/L (22-30); Chloride 104 mmol/L (98-107); Estimated CRCL calculation 90 ml/min; Estimated Glomerular Filt Rate > 60; Glucose 98 mg/dL (65-110); Lipase 58 U/L (23-300); Potassium 3.9 mmol/L (3.4-5.0); Sodium 138 mmol/L (137-145); Total Protein 7.8 g/dL (6.3-8.2)
[2025-02-15 12:51] VITALS: BP 106/67; PULSE 87; RESP 15; O2SAT 99
[2025-02-15] MEDS: KETOROLAC 15 MG/ML VIAL (*BKC) IV PUSH (13:31)
[2025-02-15 13:33] VITALS: BP 118/72; PULSE 68; RESP 17; O2SAT 100
[2025-02-15 13:56] VITALS: BP 124/71; PULSE 82; RESP 15; O2SAT 100
== END 2025-02-15 13:58 | disposition home or self-care (01) ==
PROVIDERS: Emergency Medicine; Emergency Provider Registered Nurse; PCP Nurse Practitioner Family
DX: G89.18 Other acute postprocedural pain (principal); R10.11 Right upper quadrant pain; Z90.49 Acquired absence of other specified parts of digestive tract; Z77.22 Contact with and (suspected) exposure to environmental tobacco smoke (acute) (chronic); N94.89 Other specified conditions associated with female genital organs and menstrual cycle
CPT/HCPCS: 36415; 74177; 80053; 81003; 81025; 83605; 83690; 85025; 96361; 96374; 99284; J1885; J7030; Q9967